=== PATIENT | female | born 1935 | race Caucasian/White ===

== ENCOUNTER → 2016-09-24 14:39 | Emergency (ER) | payer MEDICARE, BC ==
[~2016-09-24 14:39] MED LIST: traMADol TAB* 50 MG PO ONE
--- NOTE | 2016-09-24 15:44 | RAD ---
HISTORY: Fall, anticoagulation COMPARISONS: May 19, 2003 TECHNIQUE: Multiple contiguous axial CT scans were obtained of the head without intravenous contrast. FINDINGS: HEMORRHAGE/INFARCT: There is no hemorrhage or acute infarct. MASSES/SHIFT: There is no mass or shift. EXTRA-AXIAL SPACES: There are no extra-axial fluid collections. SULCI AND VENTRICLES: The sulci and ventricles are normal in size and position for the patient's stated age. CEREBRUM: There is hypoattenuation of the periventricular and subcortical white matter. BRAINSTEM: There are no focal parenchymal abnormalities. CEREBELLUM: There are no focal parenchymal abnormalities. VESSELS: The vessels are grossly normal. PARANASAL SINUSES: The paranasal sinuses are clear. ORBITS: The orbits are unremarkable. BONES AND SOFT TISSUE: No bone or soft tissue abnormalities are noted. OTHER: None IMPRESSION: NO ACUTE INTRACRANIAL PATHOLOGY. CHRONIC SMALL VESSEL ISCHEMIC CHANGES.
--- NOTE | 2016-09-24 15:52 | RAD ---
HISTORY: Left arm pain COMPARISONS: None VIEWS: 11, Frontal, lateral, and oblique views of the left wrist, left hand, and left elbow FINDINGS: BONE DENSITY: There is diffuse osteopenia. BONES: There is a dorsally angulated fracture of the distal radial metaphysis, with approximately 40 degrees of dorsal angulation. JOINTS: There is osteoarthritis of the first CMC joint and MCP joints. There is bilateral osteoarthritis of the ulnar trochlear articulation. There is mild osteoarthritis of interphalangeal joints. ALIGNMENT: There is no dislocation. SOFT TISSUES: Unremarkable. OTHER FINDINGS: None. IMPRESSION: 1. DORSALLY ANGULATED FRACTURE OF THE LEFT DISTAL RADIAL METAPHYSIS. 2. OSTEOPENIA. 3. OSTEOARTHRITIS. 4. NO ACUTE OSSEOUS INJURY TO THE LEFT ELBOW OR HAND.
--- NOTE | 2016-09-24 16:27 | ED ---
Upper Extremity Pain - HPI Summary HPI Summary: 81F presents with left wrist pain and left head injury s/p fall today. She denies any LOC. She denies any n/v. She has mild headache. She has bruising noted to left side of face. She denies any visual changes. She is on blood thinners. She states she tripped and fell onto her outstretched left hand. She denies any previous injury to the wrist. She denies any numbness or tingling. She is left handed. She has not taken anything for pain. - History of Current Complaint Chief Complaint: EDExtremityUpper Stated Complaint: FALL RIGHT WRIST INJURY Time Seen by Provider: 09/24/16 15:12 - Allergies/Home Medications Allergies/Adverse Reactions: Allergies Allergy/AdvReac Type Severity Reaction Status Date / Time No Known Allergies Allergy Verified 09/24/16 14:41 PMH/Surg Hx/FS Hx/Imm Hx Endocrine/Hematology History: Reports: Hx Anticoagulant Therapy Cardiovascular History: Reports: Hx Hypertension Infectious Disease History: No Infectious Disease History: Denies: Traveled Outside the [place] in Last 30 Days - Family History Known Family History: Positive: Cardiac Disease - Social History Alcohol Use: None Substance Use Type: Reports: None Smoking Status (MU): Never Smoked Tobacco Review of Systems Negative: Fever Negative: Chest Pain Negative: Shortness Of Breath Positive: Myalgia - left wrist pain Positive: Headache All Other Systems Reviewed And Are Negative: Yes Physical Exam Triage Information Reviewed: Yes Vital Signs On Initial Exam: Initial Vitals Temp Pulse Resp BP Pulse Ox 97.8 F 58 18 138/52 100 09/24/16 14:41 09/24/16 14:41 09/24/16 14:41 09/24/16 14:41 09/24/16 14:41 Vital Signs Reviewed: Yes Appearance: Positive: Well-Appearing Skin: Positive: Warm, Dry Head/Face: Positive: Normal Head/Face Inspection Eyes: Positive: Normal, Conjunctiva Clear ENT: Positive: Normal ENT inspection, Pharynx normal, TMs normal Respiratory/Lung Sounds: Positive: Clear to Auscultation, Breath Sounds Present Cardiovascular: Positive: Normal, RRR Musculoskeletal: Positive: Strength/ROM Intact - fingers and elbow, Limited @ - wrist due to pain, Other - negative snuff box tenderness, deformity to left wrist, capillary refill< 2 secs, sensation grossly intact, good pulses Neurological: Positive: Sensory/Motor Intact, Alert, Oriented to Person Place, Time, CN Intact II-III - Shaye Coma Scale Best Eye Response: 4 - Spontaneous Best Motor Response: 6 - Obeys Commands Best Verbal Response: 5 - Oriented Procedures - Splinting Location: left wrist Hand-Made Type: orthoglass Splint: sugar-tong Pre-Proc Neuro Vasc Exam: normal Post-Proc Neuro Vasc Exam: normal - Joint Reduction Joint Reduction Site: wrist (L) Reduction Attempts: 2 - attempted manual and in finger traps Pre-Procedure NV Exam: Yes Post Joint Reduction Film: joint not reduced Diagnostics - Vital Signs Vital Signs Temp Pulse Resp BP Pulse Ox 09/24/16 14:41 97.8 F 58 18 138/52 100 - Laboratory Lab Statement: Any lab studies that have been ordered have been reviewed, and results considered in the medical decision making process. - Radiology wrist, elbow, hand Xray Interpretation: Positive (See Comments) Radiology Interpretation Completed By: Radiologist post reduction Xray Interpretation: Positive (See Comments) - no change in angulation Radiology Interpretation Completed By: Radiologist - CT brain CT Interpretation: No Acute Changes - IMPRESSION: NO ACUTE INTRACRANIAL PATHOLOGY. CT Interpretation Completed By: Radiologist Course/Dx - Course Course Of Treatment: 81F presents with head injury and left wrist injury s/p FOOSH today. is left handed. has mild deformity to left wrist. on blood thinners. no LOC. normal neuro exam. neurovascular intact left wrist. CT brain normal. wrist shows dorsal angulated radius fx. placed lidocaine into fx site and attempted manual reduction and had patient hand in finger traps and placed splint on area. patient says that area felt better after reduction. post reduction xray though so no change. will have follow up with ortho. patient understands and agrees with plan. - Diagnoses Differential Diagnosis/HQI/PQRI: Positive: Fracture (Closed), Strain, Sprain Provider Diagnoses: Left wrist fracture Discharge - Discharge Plan Condition: Good Disposition: HOME Prescriptions: traMADol TAB* [Ultram*] 25 mg PO Q8H PRN #12 tab MDD 3 PRN Reason: Pain Patient Education Materials: Wrist Fracture in Adults (ED) Referrals: Arianna Collier MD [Primary Care Provider] - Yehuda Saucedo MD [Medical Doctor] - Additional Instructions: Keep splint on area and keep dry Call ortho office to set up appointment for follow up Use Tyenlol for pain every 6 hours and use narcotic for breakthrough pain Ice, elevate Return to ED if develop numbness or tingling or any new or worsening symptoms
--- NOTE | 2016-09-24 17:58 | RAD ---
HISTORY: Post reduction, left wrist fracture, trauma COMPARISONS: September 24, 2016 at 3:45 PM VIEWS: 3, Frontal, lateral, and oblique views of the left wrist performed in a splint which obscures fine bone detail FINDINGS: BONE DENSITY: There is diffuse osteopenia. BONES: Again noted is an elevated fracture of the distal radial metaphysis. The degree of angulation similar to the previous examination. JOINTS: There is osteoarthritis of the first CMC and MCP joints ALIGNMENT: There is no dislocation. SOFT TISSUES: Unremarkable. OTHER FINDINGS: None. IMPRESSION: PERSISTENT ANGULATED FRACTURE OF THE DISTAL RADIAL METAPHYSIS
[2016-09-24 18:44] VITALS: BP 138/59
== END | disposition home or self-care (01) ==
LOC: ED 14:39
DX: S62.102A Fracture of unspecified carpal bone, left wrist, initial encounter for closed fracture (principal); M85.832 Other specified disorders of bone density and structure, left forearm; R51 Headache; W19.XXXA Unspecified fall, initial encounter; Y93.9 Activity, unspecified; Y92.9 Unspecified place or not applicable
CPT/HCPCS: 70450; 99282; A9270-GY

== ENCOUNTER 2016-10-04 07:31 | Day surgery (SDC) | payer MEDICARE, BC ==
--- NOTE | 2016-09-29 11:53 | HP ---
PREOPERATIVE HISTORY AND PHYSICAL: DATE OF ADMISSION/SURGERY: 10/04/16 [facility] DATE OF OFFICE VISIT: 09/28/16 PRIMARY CARE PHYSICIAN: Dr. Collier. SLURRY PLANT OPERATOR: Dr. Lai. ATTENDING SURGEON: Arlene Marmolejo MD. (DICTATED BY SUZANNE RUBIN) PROCEDURE: Open reduction and internal fixation left wrist. CHIEF COMPLAINT: Left wrist pain after fall. HISTORY OF PRESENT ILLNESS: This is an 81-year-old female who fell at home injuring her left wrist couple of days ago. She also hit her head. She was seen at [facility] where she had x-rays which showed a comminuted intraarticular distal radius fracture. This was reduced, splinted and post reduction x-ray do not show adequate alignment of the fracture fragments. The patient also had a head CT scan which was within normal limits and elbow films which were normal. She rates her left wrist pain as 4/10. She is taking tramadol for the pain. She does have a cardiac history but has not had any symptoms recently. She saw Dr. Lai in May and did not have any of her medications changed. She has not had recent chest pain nor used her nitroglycerin recently. After review of x-rays by Dr. Marmolejo and evaluation of the patient, the recommendation is to proceed with surgery in the form of an open reduction and internal fixation left wrist, the patient has consented. PAST MEDICAL HISTORY: 1. Coronary artery disease. 2. Hyperlipidemia. 3. Hypertension. 4. History of a TIA. 5. Polymyalgia rheumatica. PAST SURGICAL HISTORY: 1. Cardiac catheterization in 2000 and in 2002. 2. Hysterectomy, age 47. 3. Tonsillectomy, adenoidectomy. CURRENT MEDICATIONS: 1. Aspirin 81 mg daily. 2. Atorvastatin calcium 20 mg daily. 3. Combigan 0.2%-0.5% one drop each eye every morning. 4. Lisinopril 2.5 mg daily. 5. Metoprolol succinate ER 25 mg daily. 6. Nitrostat 0.4 mg p.r.n. 7. Vitamin C daily. 8. Vitamin D3 1000 units daily. ALLERGIES: No known drug allergies. FAMILY MEDICAL HISTORY: Significant for congestive heart failure, stroke and diabetes. SOCIAL HISTORY: The patient is retired. She is a former smoker, smoking from age 15 to age 25, she has not smoked since. She denies recreational drug use. Does admit to alcohol use on occasion. REVIEW OF SYSTEMS: General: Negative for fevers, chills or night sweats. No known anesthesia problems. HEENT: Negative for headache, lightheadedness, or syncopal episodes. Integumentary: Negative for abrasions, lesions or open wounds. Cardiothoracic: Negative for hypertension, chest pain, palpitations or edema. Pulmonary: Negative for shortness of breath with exertion, chronic cough , COPD. GI: Negative for nausea, vomiting, diarrhea, constipation or GERD. : Negative for nocturia, urinary frequency, urgency, history of UTIs or kidney problems. Musculoskeletal: Positive for chronic complaint. Negative for chronic or intermittent back pain. Neurological: Negative for paresthesias, numbness. History of TIA. No history of seizure or epilepsy. Endocrine: Negative for diabetes or thyroid issues. Hematologic: Negative for easy bruising, anemia, excessive bleeding, or history of DVT. Infectious Disease: Negative for history of MRSA, hepatitis C or HIV. PHYSICAL EXAMINATION GENERAL: Well-developed, well-nourished 81-year-old female, in no acute distress. VITAL SIGNS: Height 5 feet 1 inch, weight 137 pounds, pulse rate 60, blood pressure 115/66. HEENT: Normocephalic, atraumatic. Pupils are equal, round and reactive to light and accommodation. Extraocular movements are intact. Throat is clear. NECK: Supple. No palpable lymph nodes. PULMONARY: Lungs are clear to auscultation bilaterally. No wheezes, rales or rhonchi. CARDIOVASCULAR: Regular rate and rhythm. S1, S2. No murmurs, rubs or gallops. No edema. ABDOMEN: Positive bowel sounds. Soft and nontender. MUSCULOSKELETAL: On exam of the left wrist, there is ecchymosis and swelling of her fingers. Skin is intact. Tenderness to palpation of the wrist. She can make almost a full fist and has good finger extension. NEUROLOGIC: Alert and oriented x3. Cranial nerves II through XII are intact. Sensation is intact to light touch. PERIPHERAL VASCULAR: 2+ radial and ulnar pulses. IMAGING STUDIES: X-ray AP, lateral and oblique of the left wrist post reduction showed persistent malalignment of the fracture fragments of the distal radius. IMPRESSION: Left distal radius fracture. PLAN: The patient is scheduled to undergo an open reduction and internal fixation of the left wrist with Dr. Marmolejo on 10/04/16. She will return to the office 10 to 14 days postop for followup and suture removal. A prescription for Worth was e- scribed to the patient's pharmacy for postoperative pain management and a prescription for tramadol was e -scribed to the patient's pharmacy for her to continue to use prior to surgery. We will get medical clearance to proceed with surgery from Dr. Collier. SUZANNE RUBIN [id number]/[facility] #: [id number] AMY
[~2016-10-04 07:31] MED LIST changes: +Famotidine IV* 10 MG/ML 2 ML (20 mg) IV ONE; -traMADol TAB* 50 MG PO ONE
[2016-10-04] MEDS ORDERED: Famotidine IV* 10 MG/ML 2 ML (20 mg) ONE (07:49)
[2016-10-04] MEDS ORDERED: ceFAZolin 2 GM PREMIX(*) 2 GM/50 ML BAG IVPB ONE (07:49)
[2016-10-04] MEDS ORDERED: Midazolam* 1 MG/ML 2 ML VIAL (2 MG) ONE (08:34)
[2016-10-04] MEDS ORDERED: fentaNYL* 50 MCG/ML 2 ML VIAL (100 MCG VIAL) ONE (08:34)
[2016-10-04] MEDS ORDERED: Propofol* 10 MG/ML 20 ML BTL IV PUSH ONE (08:45)
[2016-10-04] MEDS ORDERED: Lidocaine 2% PF * 5 ML VIAL ONE (08:45)
[2016-10-04] MEDS ORDERED: Ondansetron INJ* 2 MG/ML VIAL ONE (08:45)
[2016-10-04] MEDS ORDERED: Ketorolac INJ* 30 MG/ML 1 ML VIAL ONE (08:45)
[2016-10-04] MEDS ORDERED: ROPIVACAINE 5 MG/ML 30 ML BTL (0.5%) ONE (08:54)
[2016-10-04] MEDS ORDERED: KETAMINE HCL* 50 MG/ML 10 ML VIAL ONE (09:37)
[2016-10-04] MEDS ORDERED: Acetaminophen TAB* 325 MG PO PRN (10:41)
[2016-10-04] MEDS ORDERED: DiMENhydriNATE IV* 50 MG/ML VIAL IV PUSH PRN (10:41)
[2016-10-04 11:20] VITALS: BP 143/48
--- NOTE | 2016-10-04 14:31 | OP ---
DATE OF OPERATION: 10/04/16 - [facility] DATE OF : 33 SURGEON: Arlene Marmolejo MD BARREL CLEANER: SUZANNE Henley ANESTHESIOLOGIST: Amanda Guevara MD ANESTHESIA: General plus block. PRE-OP DIAGNOSIS: Distal radius fracture on the left. POST-OP DIAGNOSIS: Distal radius fracture on the left. OPERATIVE PROCEDURE: Open reduction internal fixation of the left distal radius fracture. ESTIMATED BLOOD LOSS: Zero. TOURNIQUET TIME: 48 minutes. INDICATION FOR PROCEDURE: Mirian is an 81-year-old female, who fell and injured her left wrist. She has a comminuted intraarticular fracture of the distal radius. She presents for open reduction internal fixation. DESCRIPTION OF PROCEDURE: The patient was brought to the operating room, was given a general anesthetic after a block anesthetic and placed in the supine position on the operating table with a tourniquet around her left upper arm. Skin of her left upper extremity was prepped and draped in the usual sterile fashion. The upper extremity was exsanguinated and tourniquet elevated to 250 mmHg. A longitudinal incision was made over the FCR tendon. We dissected through the superficial and deep portion of the tendon sheath. The FPL muscle was retracted ulnarly and then the pronator quadratus was incised and subperiosteally dissected off the distal radius. The fracture fragments were reduced with traction and manipulation with a freer elevator and the reduction was checked on the C-arm and found to be very good. The intra-articular fragments were reduced nicely and the radial inclination and palmar tilt were restored. A plate from the [employer]ynthes distal radius variable angle set was secured with 6 distal and 3 proximal screws. Two separate intraarticular fragments were secured with separate screws. The position of the hardware and fracture fragments was checked on the C-arm in the AP and lateral views and found to be satisfactory. The pronator quadratus was repaired over the plate. The FCR tendon sheath was repaired with 3-0 Polysorb suture and the skin edges were reapproximated with 4-0 nylon suture. The wound was dressed with Xeroform , 4x4, Webril, and an Steve wrap with a volar splint secured in a little bit of volar flexion. The patient was awakened from general anesthesia and brought to the recovery room in good condition. [id number]/[facility] #: [id number] AMY
--- NOTE | 2016-10-04 16:06 | RAD ---
INDICATION: Traumatic fracture left wrist intraoperative reduction. COMPARISON: Comparison is made with prior x-ray studies of the left wrist from September 24, 2016. TECHNIQUE: 2 minutes and 24 seconds of intermittent fluoroscopic guidance were provided and 20 spot films of the left wrist were obtained in the operating room. FINDINGS: The films demonstrate operative reduction and internal fixation of a transverse comminuted fracture of the distal radius. There is been placement of a metallic plate present along the anterior aspect of the distal radius transversing the fracture fragments transfixed with multiple screws. The bones are in normal alignment. IMPRESSION: INTRAOPERATIVE CONTROL FILMS. CPT II Codes: 6045F
== END 2016-10-04 11:30 | disposition home or self-care (01) ==
LOC: OREAST 07:31
PROVIDERS: ATTEND Orthopaedic Surgery
DX: S52.572A Other intraarticular fracture of lower end of left radius, initial encounter for closed fracture (principal); I25.10 Atherosclerotic heart disease of native coronary artery without angina pectoris; Z95.5 Presence of coronary angioplasty implant and graft; I10 Essential (primary) hypertension; E78.5 Hyperlipidemia, unspecified; E78.00 Pure hypercholesterolemia, unspecified; M35.3 Polymyalgia rheumatica; W19.XXXA Unspecified fall, initial encounter; Y92.009 Unspecified place in unspecified non-institutional (private) residence as the place of occurrence of the external cause
CPT/HCPCS: 76000; C1713; C1776; J0690; J1885; J2250; J2405; J2704; J2795; J3010

== ENCOUNTER 2017-01-06 13:06 | Inpatient (IN) | payer MEDICARE, BC ==
[2017-01-06] MEDS ORDERED: Acetaminophen TAB* 325 MG PO PRN (13:32)
[2017-01-06] MEDS ORDERED: diPHENhydraMINE PO* 25 MG PO PRN (13:32)
[2017-01-06] MEDS ORDERED: Ondansetron INJ* 2 MG/ML VIAL IV PRN (13:32)
[2017-01-06] MEDS ORDERED: Vancomycin per Pharmacy* NOTE FOLLOW UP PRN (13:58)
[2017-01-06] MEDS ORDERED: Vancomycin(*) 1,000 MG in NS 0.9% 250 ML* 250 ML IVPB ONE (15:00)
[2017-01-06 16:33] LABS: Hematocrit 36 % (35-47); Hemoglobin 12.1 g/dl (12.0-16.0); Mean Corpuscular HGB Conc 34 g/dl (31-36); Mean Corpuscular Hemoglobin 31 pg (27-31); Mean Corpuscular Volume 90 fL (80-97); Mean Platelet Volume 7 um3 (7.4-10.4); Red Blood Count 3.97 10^6/ul (4.0-5.4); Red Cell Distribution Width 13 % (10.5-15); White Blood Count 11.1 10^3/ul (3.5-10.8)
[2017-01-06 16:34] LABS: Add Diff/Slide Review? Slide Review Added; Comments Flag Yes
[2017-01-06 16:47] LABS: BUN/Creatinine Ratio 25.4 (8-20); C Reactive Protein 18.12 mg/L (< 5.00); Calcium 9.3 mg/dL (8.6-10.3); EGFR African American 108.4 (>60); EGFR Non-African American 84.3 (>60); Potassium 4.5 mmol/L (3.5-5.0)
--- NOTE | 2017-01-06 17:06 | HP ---
PREOPERATIVE HISTORY AND PHYSICAL: DATE OF ADMISSION: 01/06/17 DATE OF OFFICE VISIT: 01/06/17 ATTENDING PHYSICIAN/SURGEON: Yehuda Saucedo MD * (DICTATED BY SUZANNE GARY) PROCEDURE: Right elbow bursectomy. CHIEF COMPLAINT: Right elbow pain. HISTORY OF PRESENT ILLNESS: Mirian is an 81-year-old female, who complains of a 9-day history of right elbow pain. She states that there was no injury to the elbow, but she does note that she was doing some exercises prior to pain coming on. She started developing swelling, redness, and decreased range of motion in the right elbow. She rates the pain as 7/10, any activities make the pain worse. This was a gradual onset. She was seen by Dr. Medeiros and was started on amoxicillin 125 mg and has been on the amoxicillin for a week. She was originally seen on 01/04/17, in the orthopedic office, and was switched to Bactrim and followup in 2 days was arranged. This did improve her symptoms, but it was still red, hot, and painful. The right olecranon bursa was aspirated on 01/06/17 and was sent for cultures. She denies any fevers or chills. She was admitted to the hospital as a direct admit by Dr. Saucedo. PAST MEDICAL HISTORY: 1. Coronary artery disease. 2. Hyperlipidemia. 3. Hypertension. 4. TIA with loss of smell in 2010. 5. Polymyalgia rheumatica. 6. Carpal tunnel syndrome. 7. Concussion at 45 years old, status post fall. 8. Sciatica. 9. Arthritis. PAST SURGICAL HISTORY: 1. Cardiac stents, 08/22/02. 2. Tonsillectomy with adenoidectomy. 3. Hysterectomy at 47 years old. MEDICATIONS: 1. Aspirin 81 mg. 2. Atorvastatin 20 mg. 3. Combigan 0.2%-0.5%. 4. Lisinopril 25 mg. 5. Metoprolol 25 mg. 6. Nitrostat 0.4 mg. 7. Bactrim DS. 8. Tramadol 50 mg. 9. Vitamin C. 10. Vitamin D3 1000 units. ALLERGIES: No known drug allergies. FAMILY HISTORY: Diabetes, heart disease, stroke, and cancer. SOCIAL HISTORY: Lives with . She is retired. She is a former smoker x10 years and quit in 1959. She currently consumes alcohol 3 drinks per week of wine. She denies recreational drug use. REVIEW OF SYSTEMS: General: Negative for fevers, chills, night sweats. No known anesthesia problems. HEENT: Negative for headaches, lightheadedness or syncopal episodes. Integumentary: Negative for abrasions, lesions or open wounds. Cardiothoracic: Negative for chest pain, palpitations or edema. Pulmonary: Negative for shortness of breath with exertion, chronic cough or COPD. GI: Negative for nausea, vomiting, diarrhea, constipation or GERD. : Negative for nocturia, urinary frequency, urinary urgency, history of UTIs or kidney problems. Musculoskeletal: Positive for current problem. Neuro: Negative for paresthesias, numbness, history of seizure, stroke or epilepsy. Endocrine: Negative for diabetes or thyroid issues. Hematologic: Negative for easy bruising, anemia, excessive bleeding, history of DVT. ID: Negative for history of MRSA, hepatitis C or HIV. PHYSICAL EXAMINATION GENERAL: Well-developed, well-nourished 81-year-old female, in no acute distress. VITAL SIGNS: Height 61 inches, weight is 130 pounds, respirations 18, blood pressure is 133/71, pulse 59, BMI 24.6. HEENT: Normocephalic, atraumatic. NECK: Supple, with no palpable lymph nodes. PULMONARY: Lungs clear to auscultation. No wheezes, rales or rhonchi. CARDIAC: Regular rate and rhythm. S1, S2. No murmurs, rubs or gallops. No edema. ABDOMEN: Soft, nontender. Positive bowel sounds throughout. NEUROLOGICAL: Alert and oriented x3. Cranial nerves II through XII are grossly intact. Sensation is intact to light touch. Radial pulses are 2+. MUSCULOSKELETAL: The right elbow was erythematous from mid triceps to about mid forearm on the posterior aspect. It is warm to the touch. There are no open wounds and no drainage. She has range of motion from about 20 degrees to about 90 degrees of flexion. She is fluctuant and tender over the olecranon bursa. DIAGNOSTIC STUDIES: X-rays were obtained on 01/04/17, showed no acute abnormalities. IMPRESSION: Right elbow olecranon bursitis. PLAN: The patient is scheduled to undergo a right elbow olecranon bursectomy on 01/07/17. She will be directly admitted on 01/06/[address] Saucedo. She will be started on vancomycin IV. She will be kept n.p.o. after midnight for expected surgery on 01/07/17. Hospitalist was consulted for preoperative medical clearance. SUZANNE GARY [id number]/[facility] #: [id number] AMY
--- NOTE | 2017-01-06 17:09 | RAD ---
Indication: Septic bursitis. Preoperative assessment. Coronary artery disease. Cardiac stents. Comparison: May 03, 2006 Technique: Upright AP 1642 hours Report: Multiple healed RIGHT rib fractures. 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 Elevated lung volumes and both diffuse mild prominence of the interstitial markings and patchy rarefaction of the mid to upper lung zone interstitial markings. No focal pulmonary lesion, compelling alveolar consolidation, pleural effusion, pneumothorax. Mild cardiomegaly. Unremarkable central pulmonary vasculature. Mildly tortuous descending thoracic aorta. IMPRESSION: Stigmata of probable chronic obstructive lung disease. Cardiomegaly. No acute pulmonary or cardiac process evident.
[2017-01-06 17:34] LABS: Erythrocyte Sed Rate 74 mm/Hr (0-40)
[2017-01-06] MEDS: Metoprolol Succinate XL TAB* 25 MG PO SCH (17:49)
[2017-01-06] MEDS: Atorvastatin* 20 MG TAB PO SCH (17:49)
--- NOTE | 2017-01-06 22:16 | CONS ---
CC: Dr. Collier; Dr. Saucedo * CONSULTATION REPORT: DATE OF CONSULT: 01/06/17 PRIMARY CARE PHYSICIAN: Dr. Collier. ATTENDING/CONSULTING PHYSICIAN: Dr. Saucedo. MY ATTENDING WHILE IN THE HOSPITAL: Dr. Fidelia Lomas. (DICTATED BY DIVINA ATWOOD MD) REASON FOR CONSULT: Preoperative clearance and co-medical management of comorbid medical conditions. HISTORY OF PRESENT ILLNESS: Ms. Rivas is an 81-year-old female with a past medical history significant for coronary artery disease, hypertension, hyperlipidemia, transient ischemic attack, who is currently admitted to undergo a surgical treatment for her septic bursitis of her right elbow and to receive intravenous antibiotics. The patient states that about a week and a half ago, her arms are getting redder, become more painful. Soon after that, she went to a general practitioner in the community and was prescribed amoxicillin. The patient then [facility] ago and was seen by a PA and Dr. Feldman and prescribed Bactrim. The patient then went back today and was seen by Dr. Saucdeo, who decided that she was not getting better and decided to drain the bursa in the office and then send to the hospital for IV vancomycin and more complete surgical treatment. The patient denies any chest pain, shortness of breath, nausea, vomiting, fevers, chills, swelling of legs, abdominal pain, diarrhea, change in the urine, numbness or tingling in hands or feet, or any other medical problems at this time. The patient follows with petroleum products sales representative and was most recently seen in May where she had an EKG which was normal. The patient's most recent echocardiogram was in 2007 and showed ejection fraction of 60%. PAST MEDICAL HISTORY: The patient has past medical history significant for coronary artery disease, hyperlipidemia, hypertension, transient ischemic attack , skin cancer. The patient's medical record shows a history of polymyalgia rheumatica, but the patient is unsure how this diagnosis was assigned to her. PAST SURGICAL HISTORY: The patient had ORIF of her wrist in September 2016. HOME MEDICATIONS: 1. Tramadol 25 mg p.o. q.8 hours as needed for pain. 2. Metoprolol 25 mg p.o. q.p.m. 3. Lisinopril 2.5 mg p.o. q.a.m. 4. Vitamin D 1000 units p.o. daily. 5. Combigan 1 drop both eyes b.i.d. 6. Lipitor 20 mg p.o. q.p.m. 7. Aspirin 81 mg p.o. q.a.m. 8. Ascorbic acid 500 mg p.o. daily. Additional medications while in the hospital: 1. Tylenol 650 q.6 hours as needed. 2. Lactated Ringer's 1000 mL, 75 mL an hour. 3. Vancomycin 250 mL at 166.667 mL an hour. 4. Zofran 4 mg IV q.6. 5. Benadryl 25 mg p.o. q.6. The patient's aspirin was discontinued in the hospital per primary team. ALLERGIES: No known drug allergies. FAMILY HISTORY: The patient's mother had congestive heart failure. The patient denies any other pertinent family history including diabetes and cancers. SOCIAL HISTORY: The patient had a brief history of smoking 50 years ago. The patient drinks an occasional alcohol. The patient denies any illicit drug use. The patient lives in [place] independently with her . The patient has a strong support system. PHYSICAL EXAM: Vital Signs: At 13:15:17, temperature 97.9, pulse rate 59, respiratory rate 18, oxygen saturation 100% on room air, blood pressure 125/46. General: The patient is an 81-year-old female who appears her stated age and sitting comfortably in her bed in no acute distress. HEENT: Head normocephalic and atraumatic. Sclerae anicteric. Mucous membranes, conjunctivae moist. Pharynx, non-erythematous. Neck: Supple, nontender. No lymphadenopathy, no carotid bruits auscultated. Cardiac: Regular rate and rhythm. No clicks, murmurs, gallops, or rubs. Pulses 2+ in the bilateral radial, posterior tibialis and dorsalis pedis pulses. No edema of her lower extremity noted. Respiratory: Clear to auscultation bilaterally. No wheezes, rales, or rhonchi. Good air exchange bilaterally. Abdomen: Nontender, nondistended. Bowel sounds present in all 4 quadrants. No hepatosplenomegaly. No abdominal bruits auscultated. Skin: [place], dry, and intact, except for a large, red, swollen, and warm area on her right elbow consistent with infectious bursitis. Neuro: The patient has ptosis of the left eye, which she states is not new. The patient's left pupil is 4 mm, while her right pupil is 3 mm. Cranial nerves II through XII otherwise intact. Driller Portable strength intact. Alert and oriented x3. DIAGNOSTIC STUDIES/LAB DATA: WBC 11.1, Hemoglobin: 12.1, HCT:36, Platelets:368 , INR: .97, PTT:31.1, Sodium: 131, Potassium 4.5, Chloride:99, CO2: 27, Anion gap: 5, BUN:17, Creatinine: .67, Glucose:127, CRP:18.12, ESR:74 Chest x-ray: Stigmata of probable COPD, Cardiomegaly, No acute cardiac or pulmonary process noted. EKG: Normal sinus rhythm, Left axis deviation, no ST elevation or other pertinent findings. IMPRESSION AND PLAN: The patient is a healthy 81-year-old female except for septic bursitis of her right elbow, which is scheduled to be treated surgically by Dr. Saucedo pending results of lab work and diagnostic studies. The patient will be medically optimized for surgery. 1. Septic bursitis of right elbow. Antibiotics, pain control, and surgical treatment per primary team. Patient is medically optimized for her surgery and is a moderate cardiac risk due to her previous RI and TIA, but patient is capable of 4 METs and is undergoing a low risk surgery. 2. Coronary artery disease. The patient shows no signs of congestive heart failure and is well optimized on medical therapy by her petroleum products sales representative. 3. Hyperlipidemia. Continue home Lipitor. 4. Hypertension. Continue home metoprolol until the surgery, hold home lisinopril. 5. History of transient ischemic attack. The patient is on secondary prevention with statin therapy and aspirin. The patient is off the aspirin while in the hospital. The patient should be monitored closely for any signs of neurologic deficit. 6. DVT prophylaxis. Per primary team. The patient is up ad edgardo. Would recommend SCDs while in bed. 7. Code status. The patient is a full code. The patient's healthcare proxy is her , Moises Rivas, and her secondary is her son, Brooks Rivas. 8. FEN. The patient is on lactated Ringer's at 75 mL an hour. The patient is on a regular unrestricted diet followed by n.p.o. after midnight diet for surgery tomorrow per primary team. 9. Disposition. The patient is admitted to the short stay surgical floor. TIME SPENT: Approximately 60 minutes was spent on this consultation; 30 minutes of which was spent [id number] with the patient, obtaining history and physical. This plan has been discussed with my attending, Dr. Fidelia Lomas, and she is in agreement with this plan. SUZANNE KIMBLE [id number]/[facility] #: [id number] AMY
[2017-01-06] MEDS: traMADol TAB* 50 MG PO PRN (22:28)
[2017-01-06] MEDS: PTO: Brimonidine/Timolol 0.2%/0.5% OPTH(NF) SOL 5 ML BOTH EYES SCH (22:30)
[2017-01-07] MEDS: Vancomycin(*) 750 MG in NS 0.9% 250 ML* 250 ML IVPB SCH ×2 (00:35→09:56)
[2017-01-07] MEDS ORDERED: Famotidine IV* 10 MG/ML 2 ML (20 mg) IV SLOW PU ONE (06:00)
[2017-01-07 07:10] LABS: EGFR Non-African American 80.1 (>60)
[2017-01-07] MEDS ORDERED: fentaNYL* 50 MCG/ML 2 ML VIAL (100 MCG VIAL) ONE ×2 (07:38→10:51)
[2017-01-07] MEDS ORDERED: Midazolam* 1 MG/ML 2 ML VIAL (2 MG) ONE (07:39)
[2017-01-07] MEDS ORDERED: KETAMINE HCL* 50 MG/ML 10 ML VIAL ONE (07:39)
[2017-01-07] MEDS ORDERED: Bupivacaine 0.25% SDV* 30 ML ONE (07:46)
[2017-01-07] MEDS: Cholecalciferol TAB* 1000 UNITS PO SCH (07:46)
[2017-01-07] MEDS: Ascorbic Acid TAB* 500 MG PO SCH (07:46)
[2017-01-07] MEDS: PTO: Brimonidine/Timolol 0.2%/0.5% OPTH(NF) SOL 5 ML BOTH EYES SCH ×2 (07:46→20:47)
--- NOTE | 2017-01-07 07:47 | PN ---
Progress Note - Progress Note Date of Service: 01/07/17 Note: Please see dictated H&P by SUZANNE Kuo yesterday. Additionally, I saw Ms. Rivas this morning and in the clinic yesterday and direct admitted her to the hospital. She has an advanced septic olecranon bursitis. She has been on oral antibiotics. I aspirated 10 ml of halie pus in the office yesterday and this was sent for culture. She has been on vancomycin. The cellulitis is improved but she is still fluctuant and very tender and sore. Exam unchanged. The elbow flexes 60 degrees with mild discomfort. Significant cellulitis over posterior elbow with fluctuant olecranon bursa. A/P: Right septic olecranon bursitis, cultures pending this morning. Plan for excision of right septic olecranon bursectomy and irrigation and debridement.
[2017-01-07] MEDS ORDERED: Bisacodyl SUPP* 10 MG SUPP PR PRN (09:54)
[2017-01-07] MEDS ORDERED: Ondansetron INJ* 2 MG/ML VIAL IV PRN (10:41)
[2017-01-07] MEDS ORDERED: traMADol TAB* 50 MG ONE (10:43)
[2017-01-07] MEDS: traMADol TAB* 50 MG PO PRN (10:49)
[2017-01-07] MEDS: fentaNYL* 50 MCG/ML 2 ML VIAL (100 MCG VIAL) IV PRN ×3 (10:53→11:04)
--- NOTE | 2017-01-07 13:58 | PN ---
Subjective Date of Service: 01/07/17 Interval History: pt is seen post op his right elbow wash out. Doing well, pain at 5/10. Objective Active Medications: Acetaminophen (Tylenol Tab*) 650 mg PO Q6H PRN PRN Reason: pain and temp Ascorbic Acid (Vitamin C Tab*) 500 mg PO DAILY [facility] Last Admin: 01/07/17 07:46 Dose: Not Given Atorvastatin Calcium (Lipitor*) 20 mg PO QPM [facility] Last Admin: 01/06/17 17:49 Dose: 20 mg Bisacodyl (Dulcolax Supp*) 10 mg [place] DAILY PRN PRN Reason: constipation Brimonidine/Timolol (Combigan Ophth (Nf)) 1 drop BOTH EYES BID [facility] Last Admin: 01/07/17 07:46 Dose: Not Given Cholecalciferol (Vitamin D Tab*) 1,000 units PO DAILY [facility] Last Admin: 01/07/17 07:46 Dose: Not Given Diphenhydramine HCl (Benadryl Po*) 25 mg PO Q6H PRN PRN Reason: PRURITIS Enoxaparin Sodium (Lovenox(*)) 30 mg SUBCUT Q24H [facility] Piperacillin Sod/Tazobactam (Sod 3.375 gm/ Sodium Chloride) 100 mls @ 25 mls/ hr IVPB Q8H [facility] Sodium Chloride (Ns 0.9% 1000 Ml*) 1,000 mls @ 75 mls/hr IV .PER RATE [facility] Lactulose (Lactulose*) 30 ml PO Q6H PRN PRN Reason: constipation Metoprolol Succinate (Toprol Xl Tab*) 25 mg PO QPM [facility] Last Admin: 01/06/17 17:49 Dose: 25 mg Ondansetron HCl (Zofran Inj*) 4 mg IV Q6H PRN PRN Reason: NAUSEA Oxycodone/Acetaminophen (Percocet 5/325 Tab*) 1 tab PO Q3H PRN PRN Reason: PAIN - MODERATE TO SEVERE Tramadol HCl (Ultram*) 50 mg PO Q6H PRN PRN Reason: PAIN Last Admin: 01/07/17 10:49 Dose: 50 mg Vital Signs 01/06/17 01/06/17 01/06/17 14:05 15:17 15:23 Temperature 97.8 F 97.9 F Pulse Rate 56 59 Respiratory 16 18 16 Rate Blood Pressure 117/94 125/46 (mmHg) O2 Sat by Pulse 98 100 Oximetry 01/06/17 01/06/17 01/06/17 19:23 20:02 22:28 Temperature 98.1 F Pulse Rate 60 Respiratory 16 16 16 Rate Blood Pressure 120/38 (mmHg) O2 Sat by Pulse 95 Oximetry 01/06/17 01/07/17 01/07/17 23:20 00:28 03:41 Temperature 98.2 F 98.0 F Pulse Rate 55 49 Respiratory 16 16 16 Rate Blood Pressure 102/43 122/43 (mmHg) O2 Sat by Pulse 93 96 Oximetry 01/07/17 01/07/17 01/07/17 03:42 07:46 09:53 Temperature 97.5 F Pulse Rate 52 64 Respiratory 18 18 Rate Blood Pressure 147/65 (mmHg) O2 Sat by Pulse 94 100 Oximetry 01/07/17 01/07/17 01/07/17 09:55 10:00 10:05 Temperature Pulse Rate 62 63 61 Respiratory 18 18 18 Rate Blood Pressure 135/67 124/70 129/59 (mmHg) O2 Sat by Pulse 100 98 97 Oximetry 01/07/17 01/07/17 01/07/17 10:10 10:15 10:30 Temperature Pulse Rate 62 58 55 Respiratory 18 18 18 Rate Blood Pressure 112/74 126/63 142/64 (mmHg) O2 Sat by Pulse 99 99 100 Oximetry 01/07/17 01/07/17 01/07/17 10:45 10:49 10:53 Temperature Pulse Rate 55 Respiratory 18 18 18 Rate Blood Pressure 148/55 (mmHg) O2 Sat by Pulse 100 Oximetry 01/07/17 01/07/17 01/07/17 10:59 11:00 11:04 Temperature 97.7 F Pulse Rate 52 Respiratory 18 18 18 Rate Blood Pressure 149/57 (mmHg) O2 Sat by Pulse 100 Oximetry 01/07/17 01/07/17 01/07/17 11:15 11:36 11:44 Temperature 97.7 F 97.5 F 97.5 F Pulse Rate 52 50 50 Respiratory 18 15 15 Rate Blood Pressure 149/57 151/56 151/56 (mmHg) O2 Sat by Pulse 100 95 95 Oximetry 01/07/17 01/07/17 01/07/17 11:53 11:59 12:04 Temperature Pulse Rate Respiratory 15 15 15 Rate Blood Pressure (mmHg) O2 Sat by Pulse Oximetry 01/07/17 01/07/17 01/07/17 12:22 12:31 12:59 Temperature 98.0 F Pulse Rate 45 Respiratory 16 15 17 Rate Blood Pressure 130/53 (mmHg) O2 Sat by Pulse 98 Oximetry Oxygen Devices in Use Now: None Appearance: 81 yo f in nAD, aAOx3 Eyes: No Scleral Icterus, PERRLA Ears/Nose/Mouth/Throat: NL Teeth, Lips, Gums, Mucous Membranes Moist Neck: NL Appearance and Movements; NL JVP, Trachea Midline Respiratory: Symmetrical Chest Expansion and Respiratory Effort, Clear to Auscultation Cardiovascular: NL Sounds; No Murmurs; No JVD, RRR Abdominal: NL Sounds; No Tenderness; No Distention Lymphatic: No Cervical Adenopathy Extremities: No Clubbing, Cyanosis, - - trace ankle edema b/l. R elbow wrapped Skin: No Rash or Ulcers, No Nodules or Sclerosis Neurological: Alert and Oriented x 3, NL Muscle Strength and Tone Result Diagrams: 01/06/17 16:15 01/07/17 06:14 Microbiology and Other Data: Microbiology 01/07/17 08:47 Skin and Soft Tissue MRSA/MSSA (PCR - Final Wound - Elbow Right Mrsa Negative S.aureus Positive Gram Stain - Final 01/07/17 09:10 Wound Gram Stain - Final Tissue - Elbow Right 01/07/17 08:47 Gram Stain - Final Wound - Elbow Right Assess/Plan/Problems-Billing Assessment: 81 yo f with h/o CAD, HTN, hyperlipidemia s/p r elbow wash out for septic olecranon bursitis. - Patient Problems (1) Septic bursitis of elbow Comment: cx prelim shows Staph, not MRSA, antibiotics adjusted to d/c Vanc, start Zosyn (2) HTN (hypertension) Comment: cont lopressor, holding lisinopril (3) Dyslipidemia Comment: cont lipitor (4) DVT prophylaxis Comment: cont lovenox Status and Disposition: medicine consult, will follow
[2017-01-07] MEDS: NS 0.9% 1000 ML* 1,000 ML IV SCH (14:32)
[2017-01-07] MEDS: ZOSYN 3.375 GM Q8H per EXTENDED INFUSION IVPB SCH ×4 (15:19→23:00)
[2017-01-07] MEDS: oxyCODONE/Acetamin 5/325 MG* TAB PO PRN ×2 (15:29→20:46)
[2017-01-07] MEDS ORDERED: Vancomycin Trough Check NOTE FOLLOW UP ONE (16:00)
[2017-01-07] MEDS: Metoprolol Succinate XL TAB* 25 MG PO SCH (18:01)
[2017-01-07] MEDS: Atorvastatin* 20 MG TAB PO SCH (18:02)
--- NOTE | 2017-01-07 19:25 | OP ---
DATE OF OPERATION: 01/07/17 - ROOM #331 DATE OF : 33 SURGEON: Yehuda Saucedo MD. SUPERVISOR T[employer]: SUZANNE Yanes. An supply assistant was needed for the entirety of the procedure to aid in positioning of the arm and retraction. ANESTHESIOLOGIST: Dr. Emerson. ANESTHESIA: General. PRE-OP DIAGNOSIS: Septic right olecranon bursitis. POST-OP DIAGNOSIS: Septic right olecranon bursitis. OPERATIVE PROCEDURE: Irrigation and debridement and right elbow olecranon bursectomy. INDICATIONS: Mirian is 81. She developed septic right olecranon bursa. She was treated with oral antibiotics by other providers. I saw her in the office yesterday and aspirated 10 mL of halie pus. I had to admit her to the hospital and set up for surgery this morning. ESTIMATED BLOOD LOSS: 5 mL. COMPLICATIONS: None. FINDINGS: As expected. DESCRIPTION OF PROCEDURE: Mirian was seen in the preoperative holding area. The correct side, site, and procedure were identified. We came back to the operating room where anesthesia was induced. She was positioned in the lateral decubitus position. The arm over an arm tierney. The arm was prepped and draped in the usual fashion. A formal time-out was performed. I began by making a longitudinal incision over the posterior aspect of the elbow. The arm was exsanguinated gently with the Esmarch and the tourniquet was inflated 250 mmHg. I began by making a longitudinal incision over the posterior aspect of the elbow. I then developed the plane between the bursa and the dermis. The skin was quite thin due to the infection. The plane was developed all along the margins of bursa taking great care not to buttonhole through the skin. Once I had fully raised the lateral and medial borders of the bursa and reached the proximal and distal aspect of the bursa, I went ahead and started distally and raised off of the fascia and the periosteum of the ulna. I then continued to raise the bursa from distal to proximal taking great care not to perforate the fascia, so as to not expose or injury the ulnar nerve medially. I continued this until the bursa was fully excised. I then used a knife, the scalpel and the rongeur to clean up any remaining portions of the bursa. Once everything was absolutely clean, we irrigated out the wound with 3 L of saline. Hemostasis was obtained with the Bovie. A medium Hemovac drain was placed. The skin was closed with 3-0 nylon suture. The arm was splinted in 20 to 30 degrees of flexion. Tourniquet was deflated during splint placement and the hand pinked up immediately. Total tourniquet time was 55 minutes. The wound was dressed with Xeroform, 4x4s and ABD, sterile Webril and again the splint, which was a posterior soft splint with a lateral buttress. She was then woken up and taken to the recovery room in stable condition. [id number]/[facility] #: [id number] MTDD
[2017-01-08] MEDS: ZOSYN 3.375 GM Q8H per EXTENDED INFUSION IVPB SCH ×6 (06:41→23:53)
[2017-01-08] MEDS: NS 0.9% 1000 ML* 1,000 ML IV SCH (06:44)
[2017-01-08] MEDS ORDERED: Lisinopril TAB* 5 MG PO SCH (09:00)
--- NOTE | 2017-01-08 09:01 | PN ---
Progress Note - Progress Note Date of Service: 01/08/17 SOAP: Subjective: [Pt was seen this am sitting up in bed. She states that she was a bit confused last night but is now feeling much more lucid. She describes minimal pain. She states she slept well last night. Afebrile overnight, vss. ] Objective: [General: A&O x 3. NAD. RUE: Splint is c,d,i. Sensation intact to all digits. Interosseous strength is 5 /5, thenar strength is 5/5. Radial pulse is 2+. Drain pulled today with no drainage in hemovac, minimal blood present in tubing. ] Vital Signs Temp 97.7 F 01/08/17 03:18 Pulse 48 01/08/17 03:18 Resp 16 01/08/17 03:18 BP 122/38 01/08/17 03:18 Pulse Ox 96 01/08/17 03:18 Intake & Output 01/07/17 01/08/17 01/08/17 18:59 06:59 18:59 Intake Total 590 2460 Output Total 475 0 Balance 115 2460 Intake: IV Fluids 1310 NS (0.9%) 1310 IVPB 250 50 ABX - VANCOMYCIN 250 ABX - ZOSYN 50 Oral 340 1100 Output: Urine 475 0 Other: Estimated Void Medium # Bowel Movements 0 # Voids 1 Microbiology 01/07/17 08:47 Skin and Soft Tissue MRSA/MSSA (PCR - Final Wound - Elbow Right Mrsa Negative S.aureus Positive Gram Stain - Final 01/07/17 09:10 Wound Gram Stain - Final Tissue - Elbow Right 01/07/17 08:47 Gram Stain - Final Wound - Elbow Right Assessment: [S/P Right septic olecranon bursectomy. ] Plan: [Ct with lovenox 30mg for DVT prophylaxis Per hospitalists - cx prelim shows Staph, not MRSA, antibiotics adjusted to d/ c Vanc, start Zosyn ]
[2017-01-08] MEDS: Ascorbic Acid TAB* 500 MG PO SCH (09:38)
[2017-01-08] MEDS: PTO: Brimonidine/Timolol 0.2%/0.5% OPTH(NF) SOL 5 ML BOTH EYES SCH ×2 (09:38→20:07)
[2017-01-08] MEDS: Cholecalciferol TAB* 1000 UNITS PO SCH (09:38)
[2017-01-08] MEDS: Enoxaparin(*) 30 MG/0.3 ML SYR SUBCUT SCH (09:39)
--- NOTE | 2017-01-08 09:57 | PN ---
Subjective Date of Service: 01/08/17 Interval History: Pt feels well, pain in R elbow -minimal Objective Active Medications: Acetaminophen (Tylenol Tab*) 650 mg PO Q6H PRN PRN Reason: pain and temp Ascorbic Acid (Vitamin C Tab*) 500 mg PO DAILY [facility] Last Admin: 01/08/17 09:38 Dose: 500 mg Atorvastatin Calcium (Lipitor*) 20 mg PO QPM [facility] Last Admin: 01/07/17 18:02 Dose: 20 mg Bisacodyl (Dulcolax Supp*) 10 mg [place] DAILY PRN PRN Reason: constipation Brimonidine/Timolol (Combigan Ophth (Nf)) 1 drop BOTH EYES BID [facility] Last Admin: 01/08/17 09:38 Dose: 1 drop Cholecalciferol (Vitamin D Tab*) 1,000 units PO DAILY [facility] Last Admin: 01/08/17 09:38 Dose: 1,000 units Diphenhydramine HCl (Benadryl Po*) 25 mg PO Q6H PRN PRN Reason: PRURITIS Enoxaparin Sodium (Lovenox(*)) 30 mg SUBCUT Q24H [facility] Last Admin: 01/08/17 09:39 Dose: 30 mg Piperacillin Sod/Tazobactam (Sod 3.375 gm/ Sodium Chloride) 100 mls @ 25 mls/ hr IVPB Q8H [facility] Last Admin: 01/08/17 06:41 Dose: 25 mls/hr Sodium Chloride (Ns 0.9% 1000 Ml*) 1,000 mls @ 75 mls/hr IV .PER RATE [facility] Last Admin: 01/08/17 06:44 Dose: 75 mls/hr Lactulose (Lactulose*) 30 ml PO Q6H PRN PRN Reason: constipation Metoprolol Succinate (Toprol Xl Tab*) 25 mg PO QPM [facility] Last Admin: 01/07/17 18:01 Dose: 25 mg Ondansetron HCl (Zofran Inj*) 4 mg IV Q6H PRN PRN Reason: NAUSEA Oxycodone/Acetaminophen (Percocet 5/325 Tab*) 1 tab PO Q3H PRN PRN Reason: PAIN - MODERATE TO SEVERE Last Admin: 01/07/17 20:46 Dose: 1 tab Tramadol HCl (Ultram*) 50 mg PO Q6H PRN PRN Reason: PAIN Last Admin: 01/07/17 10:49 Dose: 50 mg Vital Signs 01/07/17 01/07/17 01/07/17 10:00 10:05 10:10 Temperature Pulse Rate 63 61 62 Respiratory 18 18 18 Rate Blood Pressure 124/70 129/59 112/74 (mmHg) O2 Sat by Pulse 98 97 99 Oximetry 01/07/17 01/07/17 01/07/17 10:15 10:30 10:45 Temperature Pulse Rate 58 55 55 Respiratory 18 18 18 Rate Blood Pressure 126/63 142/64 148/55 (mmHg) O2 Sat by Pulse 99 100 100 Oximetry 01/07/17 01/07/17 01/07/17 10:49 10:53 10:59 Temperature Pulse Rate Respiratory 18 18 18 Rate Blood Pressure (mmHg) O2 Sat by Pulse Oximetry 01/07/17 01/07/17 01/07/17 11:00 11:04 11:15 Temperature 97.7 F 97.7 F Pulse Rate 52 52 Respiratory 18 18 18 Rate Blood Pressure 149/57 149/57 (mmHg) O2 Sat by Pulse 100 100 Oximetry 01/07/17 01/07/17 01/07/17 11:36 11:44 11:53 Temperature 97.5 F 97.5 F Pulse Rate 50 50 Respiratory 15 15 15 Rate Blood Pressure 151/56 151/56 (mmHg) O2 Sat by Pulse 95 95 Oximetry 01/07/17 01/07/17 01/07/17 11:59 12:04 12:22 Temperature 98.0 F Pulse Rate 45 Respiratory 15 15 16 Rate Blood Pressure 130/53 (mmHg) O2 Sat by Pulse 98 Oximetry 01/07/17 01/07/17 01/07/17 12:31 12:59 13:55 Temperature 98.2 F Pulse Rate 51 Respiratory 15 17 16 Rate Blood Pressure 132/48 (mmHg) O2 Sat by Pulse 96 Oximetry 01/07/17 01/07/17 01/07/17 15:28 15:29 17:29 Temperature 97.6 F Pulse Rate 48 Respiratory 16 18 17 Rate Blood Pressure 111/47 (mmHg) O2 Sat by Pulse 100 Oximetry 01/07/17 01/07/17 01/07/17 17:37 19:40 19:43 Temperature 97.9 F 97.4 F Pulse Rate 48 49 Respiratory 16 16 17 Rate Blood Pressure 102/42 116/40 (mmHg) O2 Sat by Pulse 98 98 Oximetry 01/07/17 01/07/17 01/07/17 19:44 20:46 22:46 Temperature Pulse Rate Respiratory 17 16 16 Rate Blood Pressure (mmHg) O2 Sat by Pulse Oximetry 01/07/17 01/08/17 23:02 03:18 Temperature 99.2 F 97.7 F Pulse Rate 49 48 Respiratory 16 16 Rate Blood Pressure 98/42 122/38 (mmHg) O2 Sat by Pulse 96 96 Oximetry Oxygen Devices in Use Now: None Appearance: 81 yo F in nAD, AAOx3 Eyes: No Scleral Icterus, PERRLA Ears/Nose/Mouth/Throat: NL Teeth, Lips, Gums, Mucous Membranes Moist Neck: NL Appearance and Movements; NL JVP, Trachea Midline Respiratory: Symmetrical Chest Expansion and Respiratory Effort, Clear to Auscultation Cardiovascular: NL Sounds; No Murmurs; No JVD, RRR Abdominal: NL Sounds; No Tenderness; No Distention Lymphatic: No Cervical Adenopathy Extremities: No Clubbing, Cyanosis, - - R elbow post op dressings were not removed Skin: No Rash or Ulcers, No Nodules or Sclerosis Neurological: Alert and Oriented x 3, NL Muscle Strength and Tone Result Diagrams: 01/06/17 16:15 01/07/17 06:14 Microbiology and Other Data: Microbiology 01/07/17 08:47 Skin and Soft Tissue MRSA/MSSA (PCR - Final Wound - Elbow Right Mrsa Negative S.aureus Positive Gram Stain - Final 01/07/17 09:10 Wound Gram Stain - Final Tissue - Elbow Right 01/07/17 08:47 Gram Stain - Final Wound - Elbow Right Assess/Plan/Problems-Billing Assessment: 81 yo f with h/o CAD, HTN, hyperlipidemia s/p r elbow wash out for septic olecranon bursitis. - Patient Problems (1) Septic bursitis of elbow Comment: cx prelim shows Staph, not MRSA, antibiotics adjusted to d/c Vanc, cont Zosyn (2) HTN (hypertension) Comment: cont lopressor, holding lisinopril (3) Dyslipidemia Comment: cont lipitor (4) DVT prophylaxis Comment: cont lovenox Status and Disposition: medicine consult, will follow
[2017-01-08] MEDS: Atorvastatin* 20 MG TAB PO SCH (18:23)
[2017-01-08] MEDS ORDERED: Metoprolol Succinate XL TAB* 25 MG PO SCH (21:00)
[2017-01-09] MEDS: ZOSYN 3.375 GM Q8H per EXTENDED INFUSION IVPB SCH ×2 (06:26)
[2017-01-09 07:20] VITALS: BP 143/54
--- NOTE | 2017-01-09 07:49 | PN ---
Progress Note - Progress Note Date of Service: 01/09/17 SOAP: Subjective: 81 y/o female s/p I&D and R olecranon bursectomy 01/07/[address] Saucedo. Patient feeling well, denies pain. Multiple questions about aftercare, answered for her and daughter. WOuld like DC today. VSS afebrile Objective: General- Well appearing, resting comfortably in chair, NAD AO MSK- Surgical splint in place, full telephone worker strength 5/5, full ROM 1st R digit. rad, ulnar pulses 2+, no erythema wrist/ shoulder. Vital Signs Temp 98.1 F 01/09/17 07:15 Pulse 56 01/09/17 07:15 Resp 16 01/09/17 07:15 BP 143/54 01/09/17 07:15 Pulse Ox 96 01/09/17 07:15 Intake & Output 01/08/17 01/09/17 01/09/17 18:59 06:59 18:59 Intake Total 1648 560 Output Total 750 350 Balance 898 210 Intake: IV Fluids 583 NS (0.9%) 583 IVPB 205 ABX - ZOSYN 205 Oral 860 560 Output: Urine 750 350 Other: Estimated Void Small Medium # Bowel Movements 1 Estimated Stool Amount Medium # Voids 1 2 Assessment: STable 81 y/o female s/p I&D and R olecranon bursectomy 01/07/[address] Saucedo. Plan: - cultures- staph aur., no sensitivities. Pt on Zosyn. D/C on Bactrim - DVT prophy- lovenox while in house - HTN care per hospitalists - Splint for home - D/C home today with follow up with Dr. Saucedo on Monday Active Medications Generic Name Dose Route Start Last Admin Trade Name Freq PRN Reason Stop Dose Admin Acetaminophen 650 mg 01/06/17 13:32 Tylenol Tab* PO Q6H PRN pain and temp Ascorbic Acid 500 mg 01/07/17 09:00 01/09/17 08:29 Vitamin C Tab* PO 500 mg DAILY CAMRON Administration Atorvastatin Calcium 20 mg 01/06/17 18:00 01/08/17 18:23 Lipitor* PO 20 mg QPM CAMRON Administration Bisacodyl 10 mg 01/07/17 09:54 Dulcolax Supp* AR DAILY PRN constipation Brimonidine/Timolol 1 drop 01/06/17 21:00 01/09/17 08:29 Combigan Ophth (Nf) BOTH EYES 1 drop BID CAMRON Administration Cholecalciferol 1,000 units 01/07/17 09:00 01/09/17 08:29 Vitamin D Tab* PO 1,000 units DAILY CAMRON Administration Diphenhydramine HCl 25 mg 01/06/17 13:32 Benadryl Po* PO Q6H PRN PRURITIS Enoxaparin Sodium 30 mg 01/08/17 09:00 01/08/17 09:39 Lovenox(*) SUBCUT 30 mg Q24H CAMRON Administration Piperacillin Sod/Tazobactam 100 mls @ 25 mls/hr 01/07/17 15:00 01/09/17 06:26 Sod 3.375 gm/ Sodium Chloride IVPB 25 mls/hr Q8H CAMRON Administration Lactulose 30 ml 01/07/17 09:54 Lactulose* PO Q6H PRN constipation Metoprolol Succinate 12.5 mg 01/08/17 21:00 01/08/17 20:03 Toprol Xl Tab* PO 12.5 mg QPM CAMRON Administration Ondansetron HCl 4 mg 01/06/17 13:32 Zofran Inj* IV Q6H PRN NAUSEA Oxycodone/Acetaminophen 1 tab 01/06/17 13:32 01/07/17 20:46 Percocet 5/325 Tab* PO 1 tab Q3H PRN Administration PAIN - MODERATE TO SEVERE Tramadol HCl 50 mg 01/06/17 13:32 01/07/17 10:49 Ultram* PO 50 mg Q6H PRN Administration PAIN
[2017-01-09] MEDS: PTO: Brimonidine/Timolol 0.2%/0.5% OPTH(NF) SOL 5 ML BOTH EYES SCH (08:29)
[2017-01-09] MEDS: Ascorbic Acid TAB* 500 MG PO SCH (08:29)
[2017-01-09] MEDS: Cholecalciferol TAB* 1000 UNITS PO SCH (08:29)
[2017-01-09 08:30] LABS: Hematocrit 34 % (35-47); Hemoglobin 11.7 g/dl (12.0-16.0); Mean Corpuscular HGB Conc 34 g/dl (31-36); Mean Corpuscular Hemoglobin 31 pg (27-31); Mean Corpuscular Volume 90 fL (80-97); Mean Platelet Volume 8 um3 (7.4-10.4); Red Blood Count 3.83 10^6/ul (4.0-5.4); Red Cell Distribution Width 13 % (10.5-15); White Blood Count 8.4 10^3/ul (3.5-10.8)
[2017-01-09] MEDS: Enoxaparin(*) 30 MG/0.3 ML SYR SUBCUT SCH (08:31)
[2017-01-09 08:48] LABS: BUN/Creatinine Ratio 18.8 (8-20); C Reactive Protein 4.74 mg/L (< 5.00); Calcium 8.9 mg/dL (8.6-10.3); EGFR African American 114.3 (>60); EGFR Non-African American 88.8 (>60)
--- NOTE | 2017-01-09 11:52 | DS ---
AMENDED REPORT NOW INCLUDES COSIGNER DESIGNATION - ESIGNED BEFORE ADJUSTMENT DISCHARGE SUMMARY: DATE OF ADMISSION: 01/06/17 DATE OF DISCHARGE: 01/09/17 ATTENDING PHYSICIAN: Yehuda Saucedo MD* (DICTATED BY SUZANNE STEPHENS) CHIEF COMPLAINT: 1. Right elbow olecranon bursitis, infected. 2. Coronary artery disease. 3. Hyperlipidemia. 4. Hypertension. 5. Transient ischemic attack with loss of smell in 2010. 6. Polymyalgia rheumatica. 7. Carpal tunnel syndrome. 8. Concussion at 45 years old. 9. Sciatica. 10. Arthritis. DISCHARGE DIAGNOSES: 1. Status post right olecranon bursectomy with I and D, 01/07/17 with associated cellulitis. 2. Coronary artery disease. 3. Hyperlipidemia. 4. Hypertension. 5. Transient ischemic attack with loss of smell in 2010. 6. Polymyalgia rheumatica. 7. Carpal tunnel syndrome. 8. Concussion at 45 years old. 9. Sciatica. 10. Arthritis. PROCEDURE: Right olecranon bursectomy with incision and drainage, 01/07/17. CONSULTATIONS: Medicine. BRIEF HISTORY: Ms. Rivas is a very pleasant 81-year-old female who presented to Dr. Saucedo' clinic on 01/06/17 with a 9-day history of sharp elbow pain, which was aspirated and sent for cultures. She was admitted to the hospital to undergo a bursectomy and I and D. HOSPITAL COURSE: Ms. Rivas was admitted on 01/06/17 to [facility] where she underwent a right elbow olecranon bursectomy with incision and drainage on 01/07/17. She recovered in the surgical short stay unit. On postoperative day 1, the patient was tolerating a regular diet. Her drain was removed from the incision area on 01/08/17. Her vital signs remained stable. Her DVT prophylaxis was managed in hospital with Lovenox. By postoperative day 2, she was orthopedically and medically stable for discharge. PHYSICAL EXAMINATION: General: Well appearing, in no acute distress. Alert and oriented. Resting in chair comfortably. Musculoskeletal: Surgical splint in place. Full powder loader strength 5/5. Full range of motion of the first right hand digit. Radial and ulnar pulses 2+. No erythema noted extending from the wrist or shoulder areas. Vital Signs: Temperature 98.1, pulse 56, respirations 16, blood pressure 143/54, pulse oxygenation 96%. DISCHARGE MEDICATIONS: 1. Bactrim DS one tablet p.o. b.i.d. x14 days. 2. Ascorbic acid 500 mg p.o. daily. 3. Atorvastatin 20 mg p.o. q.p.m. 4. Combigan ophthalmic eye drops, one eye drop to both eyes b.i.d. 5. Vitamin D3 supplementation 1000 international units daily. 6. Metoprolol 25 mg p.o. q.p.m. 7. Tylenol 325 to 650 mg p.o. q.6 hours, not to exceed 4000 mg per day p.r.n. 8. Aspirin 81 mg p.o. q.p.m. 9. Lisinopril 2.5 mg p.o. q.a.m. CONDITION ON DISCHARGE: Stable. DISCHARGE INSTRUCTIONS: Ms. Rivas is a very pleasant 81-year-old female postoperative day 2, status post right elbow olecranon bursectomy with incision and drainage, which is uncomplicated. She is orthopedically and medically stable for discharge to go home. Her labs and vital signs are stable. She was started on home medications. She will follow up with Dr. Saucedo on Monday, . She will not get her splint wet or remove her splint in the interim. She will call us if any questions or concerns she may have. SUZANNE STEPHENS [id number]/[facility] #: [id number] AMY
== END 2017-01-09 11:45 | disposition home or self-care (01) | DRG 501 ==
LOC: AA 13:06 → SSU 13:17
PROVIDERS: ADMIT Orthopaedic Surgery Hand Surgery; ATTEND Orthopaedic Surgery Hand Surgery
PROC: 0R9L00Z Drainage of Right Elbow Joint with Drainage Device, Open Approach (ICD-10-PCS; 2017-01-07)
PROC: 0MB30ZZ Excision of Right Elbow Bursa and Ligament, Open Approach (ICD-10-PCS; principal; 2017-01-07 08:00)
DX: M71.121 Other infective bursitis, right elbow (principal); L03.113 Cellulitis of right upper limb; B95.8 Unspecified staphylococcus as the cause of diseases classified elsewhere; I10 Essential (primary) hypertension; I25.10 Atherosclerotic heart disease of native coronary artery without angina pectoris; E78.5 Hyperlipidemia, unspecified; Z86.73 Personal history of transient ischemic attack (TIA), and cerebral infarction without residual deficits; M35.3 Polymyalgia rheumatica; G56.00 Carpal tunnel syndrome, unspecified upper limb; M54.30 Sciatica, unspecified side; Z87.891 Personal history of nicotine dependence; Z98.61 Coronary angioplasty status; Z79.82 Long term (current) use of aspirin
CPT/HCPCS: 36415; 71010; 80048; 80202; 82565; 84520; 85025; 85027; 85610; 85652; 85730; 86140; 86850; 86900; 86901; 87070; 87073; 87077; 87186; 87205; 87640; 87641; 88304; 93005; A9270-GY; J1650; J2250; J2543; J3010; J3370

== ENCOUNTER 2019-03-04 08:21 | Inpatient (IN) | payer MEDICARE, BC ==
--- NOTE | 2019-03-04 09:00 | ED ---
Adult Trauma - HPI Summary HPI Summary: Patient is an 83 y/o F presenting to the ED for a chief complaint of buttock, lower back, and left thigh pain after a fall from a standing position about one week ago. Patient is present with her and daughter. Patient has had 3 falls in the last month. On triage, patient rates the pain as 9/10 in severity and worsens with movement. Six weeks ago, patient took at long distance trip to [place], which is when the back pain began to worsen. Patient admits urinary incontinence for the last 2 weeks, difficulty with urinary voiding, generalized weakness, numbness and paresthesia in the left LE. Patient denies any fever, chills, erythema of eyes, sore throat, CP, SOB, cough, abdominal pain, N/V, dysuria, hematuria, edema, saddle anesthesia, bowel incontinence, syncope, rash , or dizziness. Patient has a bowel movement every 3 days. Patient is able to walk with a walker with difficulty to stand. Recently, the patient saw Dr. Arianna Collier who prescribed the patient prednisone, hydrocodone, oxycodone, and a fentanyl patch without relief of symptoms. Patient last took oxycodone at 07: 00 on 03/04/19. Patient's daughter believes that the patient's PMHx of sciatica diagnosed 3 years ago has been aggravated by the recent falls. Patient also has a PMHx of HLD and a PSHx of 3 cardiac stent placements. Patient denies receiving injections in the back or back surgery. - History of Current Complaint Chief Complaint: EDFall Stated Complaint: BACK/SCIATIC PAIN PER PT DAUGHTER Time Seen by Provider: 03/04/19 08:21 Hx Obtained From: Patient Mechanism of Injury: Fall Ambulatory at the Scene: No Loss of Consciousness: no loss of consciousness Onset/Duration: Started Days Ago - One week ago, Traumatic - After a fall, Still Present Onset of Pain: Days - One week ago Onset Severity: Severe Current Severity: Severe Pain Intensity: 9 Pain Scale Used: 0-10 Numeric Location: Back - Lower, Extremities - Left thigh, Other - Buttocks Aggravating Factor(s): Nothing Alleviating Factor(s): Nothing Associated Signs & Symptoms: Positive: Numbness/Weakness - Left LE. Negative: SOB, Chest Pain, Cough, Abdominal Pain, Fever, Nausea/Vomiting, Loss of Consciousness Related History: Similar Episode - 3 falls in the last month - Additional Pertinent History Primary Care Physician: ANKUR - Allergy/Home Medications Allergies/Adverse Reactions: Allergies Allergy/AdvReac Type Severity Reaction Status Date / Time No Known Allergies Allergy Verified 03/04/19 08:43 Home Medications: Home Medications Brimonidine P 0.1%(NF) [Alphagan P 0.1% (NF)] 1 drop BOTH EYES BID 03/04/19 [ History Confirmed 03/04/19] Hydrocodone/Acetaminophen [Hydrocodone-Acetamin 5-325 mg] 1 - 2 tab PO Q4H PRN 03/04/19 [History Confirmed 03/04/19] oxyCODONE/Acetamin 5/325 MG* [Percocet 5/325 TAB*] 1 tab PO TID PRN 03/04/19 [ History Confirmed 03/04/19] PMH/Surg Hx/FS Hx/Imm Hx Previously Healthy: Yes Endocrine/Hematology History: Reports: Hx Anticoagulant Therapy Denies: Hx Diabetes Cardiovascular History: Reports: Hx Coronary Artery Disease, Hx Hypercholesterolemia, Hx Hypertension Musculoskeletal History: Reports: Hx Arthritis, Hx Bursitis - currently Right elbow, Other Musculoskeletal History - BROKEN LEFT ARM Sensory History: Reports: Hx Cataracts - removed bilateral eyes, Hx Contacts or Glasses Denies: Hx Legally Blind, Hx Deafness, Hx Hearing Aid Opthamlomology History: Reports: Hx Cataracts - removed bilateral eyes, Hx Contacts or Glasses Denies: Hx Legally Blind EENT History: Denies: Hx Deafness - Surgical History Surgical History: Yes Surgery Procedure, Year, and Place: HYSTERECTOMY 1959. 3 CARDIAC STENTS 2000. CARDIAC BYPASS OR RESTENT 1 VESSEL 2000. BILAT CATARACT REMOVAL 2016 [facility]. TONSILLECTOMY AND ADNOIDECTOMY AGE 5. plate & screw in left wrist Hx Anesthesia Reactions: No Infectious Disease History: No Infectious Disease History: Denies: Traveled Outside the [place] in Last 30 Days - Family History Known Family History: Positive: Cardiac Disease - Social History Occupation: Retired Lives: With Family Alcohol Use: Occasionally Alcohol Amount: WINE 3 X WEEKLY Hx Substance Use: No Substance Use Type: Reports: None Hx Tobacco Use: Yes Smoking Status (MU): Former Smoker Amount Used/How Often: QUIT Review of Systems Negative: Fever, Chills Negative: Erythema Negative: Sore Throat Negative: Chest Pain Negative: Shortness Of Breath, Cough Negative: Abdominal Pain, Vomiting, Nausea Positive: incontinence - Urinary. Negative: dysuria, hematuria Positive: Myalgia - Severe back pain. Negative: Edema Negative: Rash Neurological: Other - Negative dizziness Positive: Weakness - Generalized, Paresthesia - Positive paresthesia in the left LE; negative saddle paresthesia, Numbness. Negative: Syncope All Other Systems Reviewed And Are Negative: Yes Physical Exam - Summary Physical Exam Summary: Constitutional: Well-developed, Well-nourished, Alert. (-) Distressed Skin: Warm, Dry HENT: Normocephalic; Atraumatic Eyes: Conjunctiva normal Neck: Musculoskeletal ROM normal neck. (-) JVD, (-) Stridor, (-) Tracheal deviation Cardio: Rhythm regular, rate normal, Heart sounds normal; Intact distal pulses; The pedal pulses are 2+ and symmetric. Radial pulses are 2+ and symmetric. (-) Murmur Pulmonary/Chest wall: Effort normal. (-) Respiratory distress, (-) Wheezes, (-) Rales Abd: Soft, (-) tenderness, (-) Distension, (-) Guarding, (-) Rebound Musculoskeletal: (-) Edema. Diminished ROM in the left hip related to pain that is localized to left lower back. Lymph: (-) Cervical adenopathy Neuro: Alert, Oriented x3 Psych: Mood and affect Normal Triage Information Reviewed: Yes Vital Signs On Initial Exam: Initial Vitals Temp Pulse Resp BP Pulse Ox 97.9 F 54 16 181/67 98 03/04/19 08:33 03/04/19 08:33 03/04/19 08:33 03/04/19 08:33 03/04/19 08:33 Vital Signs Reviewed: Yes Procedures - Sedation Patient Received Moderate/Deep Sedation with Procedure: No Diagnostics - Vital Signs Vital Signs Temp Pulse Resp BP Pulse Ox 03/04/19 08:33 97.9 F 54 16 181/67 98 - Laboratory Result Diagrams: 03/04/19 10:00 03/04/19 10:00 Lab Statement: Any lab studies that have been ordered have been reviewed, and results considered in the medical decision making process. - Radiology Lumbar Spine MRI Radiology Interpretation Completed By: Radiologist Summary of Radiographic Findings: Lumbar Spine MRI IMPRESSION: 1. Acute L3 compression fracture results in only 10% vertebral body height loss. There is. no significant bony retropulsion or paraspinal hematoma. 2. A chronic unchanged T12 compression deformity results in mild spinal canal stenosis. 3. Varying degrees of multilevel spondylosis results in moderate L3-L4 and severe L4-L5. spinal canal stenosis. There is narrowing of the lateral recesses at these levels. 4. There is severe left neural foraminal stenosis at L4-L5. Reviewed by ED physician. Thoracic Spine MRI Radiology Interpretation Completed By: Radiologist Summary of Radiographic Findings: Thoracic Spine MRI IMPRESSION: 1. No acute compression fracture. 2. Chronic compression deformity of T12 (unchanged 2008) . 3. Multilevel spondylosis results in mild spinal canal stenosis from T9-T10 through. T11-T12. Reviewed by ED physician. - CT Thoracic Spine CT CT Interpretation Completed By: Radiologist Summary of CT Findings: Thoracic Spine CT IMPRESSION: 1. OSTEOPENIA. 2. DEGENERATIVE DISC DISEASE AND OSTEOARTHRITIS. 3. CHRONIC COMPRESSION DEFORMITY OF T12 WITH MINIMAL OSSEOUS RETROPULSION. 4. NO ACUTE OSSEOUS INJURY TO THE THORACIC SPINE. Reviewed by ED physician. Lumbar Spine CT CT Interpretation Completed By: Radiologist Summary of CT Findings: Lumbar Spine CT IMPRESSION: 1. ACUTE/SUBACUTE COMPRESSION FRACTURE OF L3 WITHOUT SIGNIFICANT OSSEOUS RETROPULSION. 2. OSTEOPENIA. 3. DEGENERATIVE DISC DISEASE AND OSTEOARTHRITIS. 4. THERE IS SEVERE NARROWING OF THE CENTRAL CANAL AT L4-L5 WITH MODERATE NARROWING AT. L3- L4. 5. THERE IS MULTILEVEL NEUROFORAMINAL NARROWING DESCRIBED ABOVE. 6. CHOLELITHIASIS. 7. ATHEROSCLEROSIS. 8. DIVERTICULOSIS. Reviewed by ED physician. Re-Evaluation - Re-Evaluation First Re-Evaluation Time: 11:53 Change: Unchanged Comment: At 11:53, I updated the patient and the family of the plan of care. Second Re-Evaluation Time: 14:00 Change: Improved Comment: At 14:00, I re-assessed the patient who is feeling better and updated the patient of imaging results. Adult Trauma Course/Dx - Course Course Of Treatment: Patient is an 83 y/o F presenting to the ED for a chief complaint of buttock, lower back, and left thigh pain after a fall from a standing position about one week ago. Patient is present with her and daughter. Patient has had 3 falls in the last month. On triage, patient rates the pain as 9/10 in severity and worsens with movement. Six weeks ago, patient took at long distance trip to [place], which is when the back pain began to worsen. Patient admits urinary incontinence for the last 2 weeks, difficulty with urinary voiding, generalized weakness, numbness and paresthesia in the left LE. Patient denies any fever, chills, erythema of eyes, sore throat, CP, SOB, cough, abdominal pain, N/V, dysuria, hematuria, edema, saddle anesthesia, bowel incontinence, syncope, rash, or dizziness. Patient has a bowel movement every 3 days. Patient is able to walk with a walker with difficulty to stand. Recently, the patient saw Dr. Arianna Collier who prescribed the patient prednisone , hydrocodone, oxycodone, and a fentanyl patch without relief of symptoms. Patient last took oxycodone at 07:00 on 03/04/19. Patient's daughter believes that the patient's PMHx of sciatica diagnosed 3 years ago has been aggravated by the recent falls. Patient also has a PMHx of HLD and a PSHx of 3 cardiac stent placements. Patient denies receiving injections in the back or back surgery. On exam, diminished ROM in the left hip related to pain that is localized to left lower back. In the ED course, patient was given morphine 2 mg IV. At 08:45, I spoke with PCP who updated on the patients course. Patient has had treatment with oxycodone without effect. MRI still waiting for prior authorization. Laboratory abnormal findngs: WBC 13.6 absolute neuts 8.7, absolute monos 1.0, BUN/Creatinine ratio 25.4, glucose 103, urine nitrate positive, urine leukocyte esterase 1+, and urine ascorbic acid present. Thoracic Spine CT IMPRESSION: 1. OSTEOPENIA. 2. DEGENERATIVE DISC DISEASE AND OSTEOARTHRITIS. 3. CHRONIC COMPRESSION DEFORMITY OF T12 WITH MINIMAL OSSEOUS RETROPULSION. 4. NO ACUTE OSSEOUS INJURY TO THE THORACIC SPINE. Lumbar Spine CT IMPRESSION: 1. ACUTE/SUBACUTE COMPRESSION FRACTURE OF L3 WITHOUT SIGNIFICANT OSSEOUS RETROPULSION. 2. OSTEOPENIA. 3. DEGENERATIVE DISC DISEASE AND OSTEOARTHRITIS. 4. THERE IS SEVERE NARROWING OF THE CENTRAL CANAL AT L4-L5 WITH MODERATE NARROWING AT. L3-L4. 5. THERE IS MULTILEVEL NEUROFORAMINAL NARROWING DESCRIBED ABOVE. 6. CHOLELITHIASIS. 7. ATHEROSCLEROSIS. 8. DIVERTICULOSIS. Lumbar Spine MRI IMPRESSION: 1. Acute L3 compression fracture results in only 10% vertebral body height loss. There is. no significant bony retropulsion or paraspinal hematoma. 2. A chronic unchanged T12 compression deformity results in mild spinal canal stenosis. 3. Varying degrees of multilevel spondylosis results in moderate L3-L4 and severe L4-L5. spinal canal stenosis. There is narrowing of the lateral recesses at these levels. 4. There is severe left neural foraminal stenosis at L4-L5. Thoracic Spine MRI IMPRESSION: 1. No acute compression fracture. 2. Chronic compression deformity of T12 (unchanged 2008). 3. Multilevel spondylosis results in mild spinal canal stenosis from T9-T10 through. T11-T12. At 11:53, I updated the patient and the family of the plan of care. At 14:00, I re- assessed the patient who is feeling better and updated the patient of imaging results. At 18:47, Dr. Rylee Avila agrees to admit the patient with a diagnosis of intractable back pain, lumbar compression fracture of L3, and UTI. Patient will be admitted to [facility] [place] with a diagnosis of intractable back pain, lumbar compression fracture of L3, and UTI. 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 Rylee Avila agrees to admit the patient with a diagnosis of intractable back pain, lumbar compression fracture of L3, and UTI. Time Discussed With Above Provider: 18:47 Instructed by Provider To: Admit As Inpatient Discharge ED - Sign-Out/Discharge Documenting (check all that apply): Patient Departure - Admit - Discharge Plan Condition: Stable Disposition: ADMITTED TO [facility] Referrals: Arianna Collier MD [Primary Care Provider] - - Attestation Statements Document Initiated by Scribe: Yes Documenting Scribe: Paula Tee Provider For Whom Scribe is Documenting (Include Credential): Justin Reyez MD Scribe Attestation: Paula Sales, scribed for Justin Reyez MD on 03/04/19 at [id number]. Status of Scribe Document: Ready
[2019-03-04 10:14] LABS: ABS Basophils 0.1 10^3/ul (0-0.2); ABS Eosinophils 0.3 10^3/ul (0-0.6); ABS Lymphocytes 3.6 10^3/ul (1.0-4.8); ABS Neutrophils 8.7 10^3/ul (1.5-7.7); Hematocrit 41 % (35-47); Hemoglobin 13.6 g/dL (12.0-16.0); Lymphocyte % 26.5 %; Mean Corpuscular HGB Conc 33 g/dL (31-36); Mean Corpuscular Hemoglobin 30 pg (27-31); Mean Corpuscular Volume 91 fL (80-97); Mean Platelet Volume 7.5 fL (7.4-10.4); Nucleated Red Blood Cells % 0.2; Platelet Count 256 10^3/uL (150-450); Red Blood Count 4.46 10^6 /uL (3.70-4.87); Red Cell Distribution Width 13 % (10-15); White Blood Count 13.6 10^3/uL (3.5-10.8)
[2019-03-04 10:36] LABS: Albumin/Globulin Ratio 1.5 (1-3); BUN/Creatinine Ratio 25.4 (8-20); Calcium 9.9 mg/dL (8.6-10.3); EGFR African American 101.5 (>60); EGFR Non-African American 83.9 (>60); Globulin 2.6 g/dL (2-4); INR 0.93 (0.82-1.09); Potassium 4.2 mmol/L (3.5-5.0); Total Bilirubin 0.9 mg/dL (0.2-1.0); Total Protein 6.6 g/dL (6.4-8.9)
[2019-03-04 10:38] LABS: Troponin I 0.02 ng/mL (<0.04)
[2019-03-04 11:28] LABS: C Reactive Protein 5.41 mg/L (<8.01)
[2019-03-04] MEDS ORDERED: Morphine 4 MG/ML VIAL (1 ml) 4 MG/ML VIAL IV ONE ×4 (11:55→19:14)
[2019-03-04 12:10] LABS: Urine Appearance Cloudy; Urine Bacteria Absent (Absent); Urine Bilirubin Negative (Negative); Urine Blood Negative (Negative); Urine Color Yellow; Urine Glucose Negative (Negative); Urine Ketones Negative (Negative); Urine Nitrite Positive (Negative); Urine Protein Negative (Negative); Urine Red Blood Cell Trace(0-2/hpf) (Absent); Urine Specific Gravity 1.012 (1.010-1.030); Urine Urobilinogen Negative (Negative); Urine White Blood Cell Trace(0-5/hpf) (Absent)
[2019-03-04] MEDS ORDERED: cefTRIAXone(*) 1 GM in NS 0.9% 50 ML* 50 ML IVPB ONE (15:10)
[2019-03-04] MEDS ORDERED: Morphine INJ* 4 MG/ML 1 ML SYRINGE (NEW SYRINGE VERSION) IV PRN (20:29)
[2019-03-04] MEDS: Cyclobenzaprine TAB* 10 MG PO PRN (20:47)
[2019-03-04] MEDS: Enoxaparin(*) 40 MG/0.4 ML SYR SUBCUT SCH (20:47)
[2019-03-04] MEDS: Phenazopyridine TAB* 100 MG PO SCH (22:36)
[2019-03-04] MEDS: Brimonidine P 0.1%(NF) 1 DROP BTL BOTH EYES SCH (22:38)
--- NOTE | 2019-03-04 23:38 | HP ---
CC: Dr. Arianna Collier * ADMISSION HISTORY AND PHYSICAL: DATE OF ADMISSION: 03/04/19 PRIMARY CARE PHYSICIAN: Dr. Arianna Collier. CHIEF COMPLAINT: Back pain. HISTORY OF PRESENT ILLNESS: This is an 83-year-old female with past medical history of coronary artery disease status 3 stents in 2000 and 2012, hypertension, dyslipidemia, TIA without any residual defects here after she sustained a fall. The patient stated that she has been having falls over the last few years, but the more severe falls happened within the last month. She had the initial fall in her trip to [place] and after her second fall, she started using the walker and canes that she had at home and today she sustained a third fall. All of the falls, she basically fell backwards on her buttocks and today her pain was so severe in her buttock and lower back and radiating to her left thigh after the fall. The pain was rated at 9/10, spasm type and she has been prescribed multiple pain medications at home by Dr. Collier, but none of them were able to contain her pain. For the last 2 weeks, she has also noticed urinary incontinence and burning sensation with urination and difficulty voiding and some generalized weakness and numbness on the left lower extremity. The patient otherwise offers no fever, chills, chest pain, shortness of breath, cough, abdominal pain, nausea, vomiting, diarrhea. Regarding her bowel movement, she does state that she usually has one bowel movement every 3 days and that is her baseline. PAST MEDICAL HISTORY: As mentioned in the history, coronary artery disease 3 stents over the years of 2000 and 2002, hypertension, hyperlipidemia, TIA, history of skin cancer and bilateral cataracts, status post surgery. PAST SURGICAL HISTORY: Include hysterectomy, bilateral cataracts, tonsillectomy and adenoidectomy, and a plate and screw in the left wrist and a right olecranon bursectomy with incision and drainage in December 2016 for infection. HOME MEDICATIONS: The patient is currently on: 1. Alphagan 1 drop both eyes b.i.d. 2. Metoprolol 12.5 mg oral every evening. 3. Lisinopril 2.5 mg every morning. 4. Atorvastatin 20 mg every evening. 5. Vitamin D3 1000 units oral daily. 6. Aspirin 81 mg oral every morning. 7. Vitamin C 500 mg oral daily. Recent prescription opiates include Percocet 5/325 mg p.o. t.i.d. p.r.n. and also she has tried hydrocodone/acetaminophen 5/325 and she has tried fentanyl patch as well without much relief. ALLERGIES: No known drug allergies. FAMILY HISTORY: Mother had congestive heart failure, otherwise, no other pertinent history. SOCIAL HISTORY: She had a brief history of smoking over 50 years ago, occasionally drinks alcohol, denies any illicit drug use. The patient lives intermittently with her and has a strong family support system. She initially thought about getting herself DNR; however, after discussing with her , they wanted to attend her grand kids wedding and would like to be alive and have everything done to keep herself alive. I did discuss the odds of resuscitation are not in her favor given her age and her low BMI. There is a probability of rib fracture, but the patient is still is thinking about her goals of care and for now would like to be full code. She did assign her , Moises Rivas, as her healthcare proxy and she also wants her youngest son, Dmitry, to be a surrogate decision maker as well. PHYSICAL EXAMINATION GENERAL: In general, the patient is awake, alert, oriented x3, does not appear to be in any acute distress. VITAL SIGNS: Temperature 97.9, BP was noted to be 134/64, heart rate 60, respiratory rate is 18, saturating 92% on room air. HEAD AND NECK EXAMINATION: Atraumatic, normocephalic. Bilateral pupils are reactive. Oral mucosa was moist. Neck is supple. No jugular venous distention. LUNGS: Clear to auscultation bilaterally. No wheezing, rhonchi, or rales. HEART: S1, S2. Regular rate and rhythm. ABDOMEN: Soft, nontender, nondistended. EXTREMITIES: No cyanosis, clubbing, or edema. Straight leg raise on both lower extremities did elicit pain in her low back, left worse than the right. DIAGNOSTIC STUDIES/LABORATORY DATA: CT of the lumbar spine showed acute/ subacute compression fracture of the L3 without significant osseous retropulsion , osteopenia, degenerative disk disease and osteoarthritis. There is severe narrowing of the central canal at the L4-L5 with moderate narrowing at L3-L4 and there is multilevel neuroforaminal narrowing as described above. There is cholelithiasis and atherosclerosis and diverticulosis. CT thoracic spine showed osteopenia, degenerative disk disease and osteoarthritis, chronic compression deformity of the T12 with minimal osseous retropulsion. No acute osseous injury of the thoracic spine. MRI of the lumbar spine showed acute L3 compression fracture resulting in only 10% of vertebral body height loss. There is no significant bony retropulsion or paraspinal hematoma. A chronic unchanged T12 compression deformity results in spinal canal stenosis, varying degrees of multilevel spondylosis resulting in moderate L3-L4 and severe L4-L5 spinal canal stenosis and there is narrowing of the lateral recess at these levels and severe left neuroforaminal stenosis at L4-L5. MRI of the thoracic spine showed no acute compression fracture and chronic compression deformity of the T12 unchanged and multilevel spondylosis results in mild spinal canal stenosis from T9-T10 to T11-T12. Labs: CBC was remarkable for elevated white count of 13.6, coagulation profile unremarkable. Comprehensive metabolic panel was unremarkable. Lactic acid normal. Urinalysis showed cloudy urine with positive nitrite and leukocyte esterase. IMPRESSION: This is an 83-year-old female with coronary artery disease status post stenting, hypertension, dyslipidemia, history of recurrent falls with 3 episodes of falls with severe low back pain and some paresthesias secondary to fall, noted to have an acute L3 compression fracture and some severe left neuronal foraminal stenosis at L4-L5. ASSESSMENT: 1. Intractable back pain radiating to the left lower extremity, likely multifactorial from either the L3 compression fracture versus the severe left neuroforaminal stenosis at L4-L5. Either way, we will start the patient on morphine for pain along with muscle relaxer such as Flexor. We will start with a low dose and evaluate. We could consider interventional radiology evaluation to see if any cementing procedure would help with compression fracture which could eventually help her with her pain. If not, we could also consider consultation with Neurosurgery to see if any other specific surgical treatment would help her and will consider PT evaluation based on her pain control. 2. Urinary tract infection. Given her abnormal urinalysis and her symptoms and also her elevated white count, we will continue the patient on ceftriaxone that was started in the ER and follow up urine culture and titrate antibiotics accordingly. 3. History of coronary artery disease, status post stenting. We will continue the aspirin therapy for now. If a procedure is planned, we could consider stopping it. 4. History of dyslipidemia. Restart Lipitor. 5. History of hypertension. Restart her home BP medications. 6. DVT prophylaxis with Lovenox. 7. Code status currently is still full code. [id number]/[facility] #: [id number] MTDKendall
[2019-03-05] MEDS: Cyclobenzaprine TAB* 10 MG PO PRN (04:06)
[2019-03-05 06:15] LABS: ABS Basophils 0.1 10^3/ul (0-0.2); ABS Eosinophils 0.3 10^3/ul (0-0.6); ABS Lymphocytes 2.9 10^3/ul (1.0-4.8); ABS Neutrophils 8.6 10^3/ul (1.5-7.7); Hematocrit 42 % (35-47); Hemoglobin 14.3 g/dL (12.0-16.0); Lymphocyte % 22.3 %; Mean Corpuscular HGB Conc 34 g/dL (31-36); Mean Corpuscular Hemoglobin 31 pg (27-31); Mean Corpuscular Volume 91 fL (80-97); Mean Platelet Volume 7.8 fL (7.4-10.4); Platelet Count 266 10^3/uL (150-450); Red Blood Count 4.66 10^6 /uL (3.70-4.87); Red Cell Distribution Width 13 % (10-15); White Blood Count 12.8 10^3/uL (3.5-10.8)
[2019-03-05 06:36] LABS: BUN/Creatinine Ratio 33.3 (8-20); Calcium 9.6 mg/dL (8.6-10.3); EGFR African American 115.2 (>60); EGFR Non-African American 95.2 (>60); Potassium 4.1 mmol/L (3.5-5.0)
[2019-03-05] MEDS ORDERED: traMADol TAB* 50 MG PO PRN (08:43)
[2019-03-05] MEDS: Acetaminophen TAB* 325 MG PO SCH ×2 (09:20→17:35)
[2019-03-05] MEDS: Aspirin EC TAB* 81 MG TAB.EC PO SCH (09:21)
[2019-03-05] MEDS: Ascorbic Acid TAB* 500 MG PO SCH (09:22)
[2019-03-05] MEDS: Phenazopyridine TAB* 100 MG PO SCH ×3 (09:22→22:04)
[2019-03-05] MEDS: Cholecalciferol TAB* 1000 UNITS PO SCH (09:23)
[2019-03-05] MEDS: Lisinopril TAB* 5 MG PO SCH (09:23)
[2019-03-05] MEDS: Brimonidine P 0.1%(NF) 1 DROP BTL BOTH EYES SCH ×2 (09:24→21:51)
--- NOTE | 2019-03-05 09:50 | PN ---
Subjective Date of Service: 03/05/19 Interval History: Patient was seen in room, resting in bed. Reports radiating pain from left lower back to left lateral thigh. Morphine is not adequately controlling pain, reports it is causing some confusion/unclear thinking. Is eager to get out of bed, though currently on bedrest until Dr. Witt can be reached. Reports urinary frequency, burning and pressure. Denies headaches, fever/chills, chest pain, palpitations, abdominal pain, nausea, vomiting, issues with bowel. Family History: Unchanged from Admission Social History: Unchanged from Admission Past Medical History: Unchanged from Admission Objective Active Medications: Acetaminophen (Tylenol Tab*) 975 mg PO Q8H [facility] Last Admin: 03/05/19 09:20 Dose: 975 mg Ascorbic Acid (Vitamin C Tab*) 500 mg PO DAILY [facility] Last Admin: 03/05/19 09:22 Dose: 500 mg Aspirin (Aspirin Ec Tab*) 81 mg PO QAM [facility] Last Admin: 03/05/19 09:21 Dose: 81 mg Atorvastatin Calcium (Lipitor*) 20 mg PO QPM [facility] Brimonidine Tartrate (Alphagan P 0.1% (Nf)) 1 drop BOTH EYES BID [facility] Last Admin: 03/05/19 09:24 Dose: Not Given Cholecalciferol (Vitamin D Tab*) 1,000 units PO DAILY [facility] Last Admin: 03/05/19 09:23 Dose: 1,000 units Cyclobenzaprine HCl (Flexeril Tab*) 5 mg PO TID PRN PRN Reason: SPASMS - BACK Last Admin: 03/05/19 04:06 Dose: 5 mg Enoxaparin Sodium (Lovenox(*)) 40 mg SUBCUT Q24H [facility] Last Admin: 03/04/19 20:47 Dose: 40 mg Ceftriaxone Sodium 1 gm/ (Sodium Chloride) 50 mls @ 100 mls/hr IVPB Q24H [facility] Lisinopril (Prinivil Tab*) 2.5 mg PO QAM [facility] Last Admin: 03/05/19 09:23 Dose: 2.5 mg Metoprolol Succinate (Toprol Xl Tab*) 12.5 mg PO QPM [facility] Morphine Sulfate (Morphine Inj (Syringe)*) 4 mg IV Q4H PRN PRN Reason: PAIN - SEVERE Phenazopyridine HCl (Pyridium Tab*) 200 mg PO TID [facility] Stop: 03/06/19 14:01 Last Admin: 03/05/19 09:22 Dose: 200 mg Tramadol HCl (Ultram*) 50 mg PO Q6H PRN PRN Reason: PAIN - MODERATE Vital Signs - 8 hr 03/05/19 03/05/19 03/05/19 04:00 04:06 06:13 Temperature 98.5 F Pulse Rate 84 Respiratory 20 17 16 Rate Blood Pressure 151/80 (mmHg) O2 Sat by Pulse 99 Oximetry 03/05/19 03/05/19 07:39 08:00 Temperature 98.2 F Pulse Rate 68 Respiratory 16 16 Rate Blood Pressure 138/68 (mmHg) O2 Sat by Pulse 96 96 Oximetry Oxygen Devices in Use Now: None Appearance: Well developed older woman. No acute distress noted. Eyes: No Scleral Icterus, PERRLA Ears/Nose/Mouth/Throat: NL Teeth, Lips, Gums, Clear Oropharnyx, Mucous Membranes Moist Neck: NL Appearance and Movements; NL JVP Respiratory: Symmetrical Chest Expansion and Respiratory Effort Cardiovascular: NL Sounds; No Murmurs; No JVD, RRR, No Edema Abdominal: NL Sounds; No Tenderness; No Distention Lymphatic: No Cervical Adenopathy Extremities: No Edema, No Clubbing, Cyanosis Skin: No Rash or Ulcers, No Nodules or Sclerosis Neurological: Alert and Oriented x 3 Lines/Tubes/Other Access: Clean, Dry and Intact Peripheral IV Result Diagrams: 03/05/19 05:30 03/05/19 05:30 Assess/Plan/Problems-Billing Assessment: This is an 83 year old female with a PMH significant for CAD, HTN and HLD who sustained an L3 fracture after falling at home yesterday. Family wishes to manage it conservatively. - Patient Problems (1) L3 vertebral fracture Current Visit: Yes Status: Acute Code(s): S32.039A - UNSP FRACTURE OF THIRD LUMBAR VERTEBRA, INIT FOR CLOS FX SNOMED Code(s): 722709274 Comment: -Avoid morphine due to ensuing confusion. Scheduled tylenol and prn tramadol for pain control. Ice pack for sciatica pain on left side. -Dr. David will be consulted for recommendations for activity and possible brace fitting. -Would like to order OT/PT when appropriate due to frequent falls. (2) Dyslipidemia Current Visit: No Status: Acute Code(s): E78.5 - HYPERLIPIDEMIA, UNSPECIFIED SNOMED Code(s): 475878761 Comment: -Continue atorvastatin. (3) HTN (hypertension) Current Visit: No Status: Acute Code(s): I10 - ESSENTIAL (PRIMARY) HYPERTENSION SNOMED Code(s): 02487492 Comment: -Continue lisinopril and metoprolol. (4) UTI (urinary tract infection) Current Visit: Yes Status: Acute Comment: -Currently symptomatic. Continue ceftriaxone. (5) DVT prophylaxis Current Visit: No Status: Acute Code(s): AWF1042 - SNOMED Code(s): 250733125 Comment: -Cont lovenox (6) Full code status Current Visit: Yes Status: Acute Code(s): Z78.9 - OTHER SPECIFIED HEALTH STATUS SNOMED Code(s): 980663314 Status and Disposition: CONDITION: Guarded DISPOSITION: Admit inpatient. Attending: Chelsea Larkin
[2019-03-05] MEDS ORDERED: cefTRIAXone(*) 1 GM in NS 0.9% 50 ML* 50 ML IVPB SCH (16:00)
--- NOTE | 2019-03-05 16:31 | CONS ---
CONSULTATION REPORT: DATE OF CONSULT: 03/05/19 HISTORY OF PRESENT ILLNESS: An 83-year-old female with history of axial low back pain with left lower extremity radicular pain, followup in the ER after having multiple falls with complaint of increased low back pain. The patient has noticed increased pain with standing and walking, was admitted to the ER and had scans done, which showed possible L3 compression fracture. Neurosurgery was consulted to evaluate the patient. Currently, the patient denies any issues with loss of control of bladder and bowel. She does report increased pain with walking and standing. Denies any issues with loss of sensation in lower extremities or upper extremities as well. PAST MEDICAL HISTORY: 1. Hypertension. 2. Dyslipidemia. 3. UTI. MEDICATIONS: 1. Percocet 5/325. 2. Hydrocodone 5/325. 3. Alphagan 0.1%. 4. Metoprolol succinate/Toprol 12.5 mg. 5. Lisinopril 2.5 mg. 6. Atorvastatin 20 mg. 7. Vitamin D3 1000 units p.o. daily. 8. Aspirin 81 mg p.o. q.a.m. 9. Vitamin C 500 mg p.o. daily. PHYSICAL EXAM: Vital Signs: Temperature is 98.4, pulse rate 76, respiratory rate 18, O2 saturation 95% on room air, blood pressure is 123/56. General: The patient is lying upright in bed, comfortable, no acute distress noted. Neuro: The patient is alert and oriented x3. Cranial nerves II through XII grossly intact. Pupils equal in size. EOMs intact. Sensation is intact throughout with light touch. Upper extremity motor strength 5/5 bilaterally throughout. Lower extremity motor strength 5/5 bilaterally throughout. No tenderness to palpation of cervical, thoracic spine. Mild tenderness with palpation to lumbar spine at the lumbosacral junction. Full range of motion with cervical spine with flexion and extension of neck. ASSESSMENT: An 83-year-old female with increased axial low back pain, status post multiple mechanical falls at home. On imaging has a L3 compression fracture at the superior endplate extending through the anterior column with no displacement with 10% height loss. The patient is neurologically intact with no focal deficits. PLAN: We will recommend the patient get a TLSO brace and do standing upright with brace on to evaluate for possible any alignment issues or kyphosis. The patient is able to tolerate brace and work with brace, will possibly be cleared by Neurosurgery. Get CT scan of the cervical spine. We will follow up with imaging as well as the CT scan of the cervical spine. Thank you for allowing me to be a part of this patient's care. SUZANNE HOPE [id number]/[facility] #: [id number] AMY
[2019-03-05] MEDS: Atorvastatin* 20 MG TAB PO SCH (17:34)
[2019-03-05] MEDS: Metoprolol Succinate XL TAB* 25 MG PO SCH (17:35)
[2019-03-05] MEDS: Enoxaparin(*) 40 MG/0.4 ML SYR SUBCUT SCH (22:05)
[2019-03-06] MEDS ORDERED: Ondansetron INJ* 2 MG/ML VIAL IV PRN (01:32)
[2019-03-06] MEDS: Acetaminophen TAB* 325 MG PO SCH ×3 (03:59→17:34)
[2019-03-06] MEDS: Ascorbic Acid TAB* 500 MG PO SCH (09:57)
[2019-03-06] MEDS: Aspirin EC TAB* 81 MG TAB.EC PO SCH (09:57)
[2019-03-06] MEDS: Cholecalciferol TAB* 1000 UNITS PO SCH (09:57)
[2019-03-06] MEDS: Lisinopril TAB* 5 MG PO SCH (09:58)
[2019-03-06] MEDS: Phenazopyridine TAB* 100 MG PO SCH ×2 (10:13→14:09)
[2019-03-06] MEDS: Brimonidine P 0.1%(NF) 1 DROP BTL BOTH EYES SCH (10:14)
[2019-03-06] MEDS ORDERED: Levofloxacin 750 MG IVPREMIX(* 750 MG/150 ML BAG IVPB SCH (12:00)
[2019-03-06 16:10] VITALS: BP 118/59
[2019-03-06] MEDS: Atorvastatin* 20 MG TAB PO SCH (17:40)
[2019-03-06] MEDS: Metoprolol Succinate XL TAB* 25 MG PO SCH (17:41)
--- NOTE | 2019-03-06 21:24 | DS ---
CC: Dr. Arianna Collier; Dr. Turk * DISCHARGE SUMMARY: DATE OF ADMISSION: 03/04/19 DATE OF DISCHARGE: 03/06/19 PRIMARY CARE PROVIDER: Dr. Arianna Collier. ATTENDING PHYSICIAN: Dr. Chelsea De Santiago.* (DICTATED BY ALYSHA ROJAS NP) PRIMARY DIAGNOSES: 1. L3 compression fracture. 2. Urinary tract infection, pseudomonas. SECONDARY DIAGNOSES: 1. Dyslipidemia. 2. Hypertension. 3. Coronary artery disease. STUDIES WHILE IN THE HOSPITAL: 1. Lumbar spine CT on 03/04/19 reads as acute/subacute compression fracture at L3 without significant osseous retropulsion. Osteopenia. Degenerative disk disease and osteoarthritis. There is severe narrowing of the central canal at L4-L5 with moderate narrowing at L3-L4. There is multilevel neural foraminal narrowing as described in the body of the report. Cholelithiasis. Atherosclerosis. Diverticulosis. 2. Thoracic spine CT on 03/04/19 reads as osteopenia. Degenerative disk disease and osteoarthritis. Chronic compression deformity of T12 with minimal osseous retropulsion. No acute osseous injury to the thoracic spine. 3. Lumbar spine MRI on 03/04/19 reads as acute L3 compression fracture results in only 10% vertebral body height loss. There is no significant amount of bony retropulsion or paraspinal hematoma. A chronic unchanged T12 compression deformity results in mild spinal canal stenosis. Varying degrees of multilevel spondyloses result in moderate L3-L4 and severe L4-L5 spinal canal stenosis. There is narrowing of the lateral recesses at these levels. There is severe left neural foraminal stenosis at L4-L5. 4. Thoracic spine MRI on 03/04/19 reads as no acute compression fracture. Chronic compression deformity of T12 (unchanged from 2008). Multilevel spondyloses result in mild spinal canal stenosis from T9-T10 through T11-T12. 5. Cervical and lumbar spine x-ray on 03/06/19 not yet reported at this time of dictation. HISTORY OF PRESENT ILLNESS AND HOSPITAL COURSE: Ms. Rivas is an 83-year-old female with past medical history of coronary artery disease, hypertension, hyperlipidemia, and TIA who presents to the emergency room on 03/04/19 with complaints of back pain. Please see the history and physical by Dr. Paulson for a complete summary of the events leading up to this hospitalization. In short, the patient has had somewhat frequent falls recently. During all of these falls , it is noted that she falls backwards on her buttocks and during a most recent fall, she experienced severe pain in her buttock and lower back radiating to her left side, which prompted her to present to the emergency room. In the emergency room, she had imaging as noted above and was noted to have an acute L3 compression fracture. She was admitted by the hospitalist service. Neurosurgery was consulted and the patient was seen by SUZANNE Patterson, on 09/16, at which time he recommended a TLSO brace and conservative management. He did indicate that the patient would need upright x-rays once the brace is obtained and in place and would need to be cleared by neurosurgery prior to discharge. The patient's pain has been managed with Flexeril and morphine while here in the hospital. She is noted by her family to be slightly more confused than her baseline. The patient does report that she feels more confused and she does have a difficult time sleeping while here in the hospital. She additionally was noted to have a urinary tract infection. Urine culture grew greater than 100,000 colonies of Pseudomonas aeruginosa resistant to cefazolin, for which she was started on antibiotics. The patient was fitted for a TLSO brace today on 03/06/19 and did receive the brace late this afternoon /early evening. Neurosurgery was contacted and they did order upright x-rays, which the patient had. X-rays are not reported at this time, though I did speak with SUZANNE Patterson, and he indicated that the x-rays looked satisfactory, though indicated that the patient would not be cleared for discharge from a neurosurgery standpoint until appropriate evaluation by physical therapy. I did speak in length with the patient and her family including the patient's , son, and daughter about the plan of care. The family is very adamant at this point that they would like to take the patient home tonight and are willing to sign out AMA. They were agreeable to staying for x- rays, though are not agreeable to staying for physical therapy evaluation. The patient was noted by the nurse to require to assist on a walker with ambulation and the family is confident that they are able to manage this at home. Primary decision making was made by the patient's son, who is a retired nurse. He does have capacity to make these medical decisions and the patient does indicate that she would like him to make her medical decisions. He does understand that there are risks associated with the patient returning home without proper evaluation by physical therapy including, but not limited to, increased pain, recurrent falls, further fractures, cord compression, paraplegia , and possible . Regardless of these risks, he still wishes to take the patient home and is agreeable to visiting nurse services for physical therapy evaluation. I did speak with case management to ensure that a referral has been made to visiting nurse services and this was confirmed. I did indicate to the neurosurgery PA that the family would be leaving AMA and he did request that they follow up in 3 weeks in the office. At this point, the patient reports feeling well and she has minimal pain. On exam, she has no focal neurological deficits. She is alert and oriented to self, place, and situation. Heart has a regular rate and rhythm without murmurs, rubs, or gallops. Lungs are clear to auscultation without rhonchi, wheezes, or rubs. Abdomen is soft, nontender. There is no edema. Ms. Rivas is leaving against medical advice. Most recent vitals are as follows: Temp 98.0, heart rate 77, respiratory rate 18, oxygen saturation 96% on room air, blood pressure 118/59. DISCHARGE MEDICATIONS: New Medication: 1. Ciprofloxacin 500 mg p.o. b.i.d. x4 days. Continued Medications: 1. Ascorbic acid 500 mg p.o. daily. 2. Aspirin 81 mg p.o. daily. 3. Atorvastatin 20 mg p.o. at bedtime. 4. Brimonidine 0.1% one drop to both eyes b.i.d. 5. Cholecalciferol 1000 units p.o. daily. 6. Lisinopril 2.5 mg p.o. daily. 7. Metoprolol succinate 12.5 mg p.o. at bedtime. 8. Percocet 5/325 one tab p.o. t.i.d. p.r.n. for pain. Discontinued Medication: 1. [place]. DISCHARGE PLAN: Ms. Rivas is leaving against medical advice. She can resume her usual diet. Regarding activity, the patient should wear her TLSO brace as instructed and it is strongly recommended that she follow up with physical therapy as soon as possible. It is also recommended that she ambulate with a walker and to assist at all times. Medications are noted above. I have prescribed 4 additional days of Cipro to complete a 5-day course of antibiotics for her pseudomonas urinary tract infection. The patient had previously been taking Percocet at home and I have sent in an additional small supply of this for pain management. She can continue her other usual medications as noted above. Again, she will need to follow up in the office with neurosurgery in 3 weeks for repeat x-rays, and the patient's son is aware of this. There has been a referral made to visiting nurse services. The patient should follow up with her primary care provider in the next 4 to 7 days. She should return to the emergency room or nearest hospital for any worsening of symptoms, shortness of breath, lightheadedness, dizziness, chest discomfort, high fevers, chills, night sweats, loss of consciousness, or any other worrisome signs or symptoms. DISCHARGE CONDITION: Fair. DISCHARGE DISPOSITION: Against medical advice. This is a summarized report of a complex medical history and hospital stay. For further details, please see the entire medical record. TIME SPENT: Approximately 60 minutes were spent on this discharge. ALYSHA ROJAS NP [id number]/[facility] #: [id number] AMY
== END 2019-03-06 18:08 | disposition left against medical advice (07) | DRG 552 ==
LOC: ED 08:21 → SSU 21:20
PROVIDERS: ADMIT Internal Medicine; ATTEND Internal Medicine
DX: S32.039A Unspecified fracture of third lumbar vertebra, initial encounter for closed fracture (principal); N39.0 Urinary tract infection, site not specified; Z16.19 Resistance to other specified beta lactam antibiotics; R29.6 Repeated falls; B96.5 Pseudomonas (aeruginosa) (mallei) (pseudomallei) as the cause of diseases classified elsewhere; I25.10 Atherosclerotic heart disease of native coronary artery without angina pectoris; E78.00 Pure hypercholesterolemia, unspecified; I10 Essential (primary) hypertension; M19.90 Unspecified osteoarthritis, unspecified site; E78.5 Hyperlipidemia, unspecified; Z53.29 Procedure and treatment not carried out because of patient's decision for other reasons; M47.814 Spondylosis without myelopathy or radiculopathy, thoracic region; W17.89XA Other fall from one level to another, initial encounter; M85.88 Other specified disorders of bone density and structure, other site; K80.20 Calculus of gallbladder without cholecystitis without obstruction; K57.90 Diverticulosis of intestine, part unspecified, without perforation or abscess without bleeding; M48.061 Spinal stenosis, lumbar region without neurogenic claudication; M47.816 Spondylosis without myelopathy or radiculopathy, lumbar region; Z95.5 Presence of coronary angioplasty implant and graft; Z72.89 Other problems related to lifestyle; Z87.891 Personal history of nicotine dependence; Z86.73 Personal history of transient ischemic attack (TIA), and cerebral infarction without residual deficits; Z85.828 Personal history of other malignant neoplasm of skin; Y92.009 Unspecified place in unspecified non-institutional (private) residence as the place of occurrence of the external cause; Z79.82 Long term (current) use of aspirin; Z79.899 Other long term (current) drug therapy
CPT/HCPCS: 36415; 72040; 72100; 72110; 72128; 72131; 72146; 72148; 80048; 80053; 81003; 81015; 83605; 84484; 85025; 85610; 85730; 86140; 87040; 87077; 87086; 87186; 99284; A9270-GY; J0696; J1650; J2270; J2405